=== PATIENT | male | born 1975 | race African-American/Black ===

== ENCOUNTER 2017-06-04 20:03 | Emergency (ER) | payer MEDICAID ==
[~2017-06-04] VITALS: Ht 185.4 cm; Wt 76.0 kg
[~2017-06-04 20:03] MED LIST: DILANTIN; PHENOBARBITAL; RISPERDAL; SEROQUEL
[2017-06-05 03:03] LABS: BASOPHILS % 0.7 % (0.0-2.0); EOSINOPHILS % 0.8 % (0.0-5.0); HEMATOCRIT. 37.6 % (42.0-52.0); HEMOGLOBIN. 12.6 g/dL (14.0-18.0); LYMPHOCYTES % 10.8 % (20.0-50.0); MEAN CORPUSCULAR HEMOGLOBIN 28.9 pg (28.0-32.0); MEAN CORPUSCULAR VOLUME 86.6 fL (80.0-94.0); MONOCYTES % 6.2 % (2.0-8.0); NEUTROPHILS % 81.5 % (40.0-76.0); PLATELET 95 x1000/uL (130-400); RED BLOOD CELL COUNT 4.34 mill/uL (4.7-6.1)
[2017-06-05 03:08] LABS: CHLORIDE 107 mEq/L (98-107)
[2017-06-05 03:17] LABS: CARBON DIOXIDE 22 mEq/L (21-32); ETHANOL BLOOD 240 mg/dL
[2017-06-05 03:32] LABS: CLARITY URINE CLEAR (CLEAR); COLOR URINE YELLOW (YELLOW); KETONES URINE NEGATIVE (NEGATIVE); LEUKOCYTE ESTERASE URINE NEGATIVE (NEGATIVE); NITRITE URINE NEGATIVE (NEGATIVE); OCCULT BLOOD URINE NEGATIVE (NEGATIVE); PROTEIN URINE NEGATIVE (NEGATIVE); SPECIFIC GRAVITY URINE 1.019 (1.005-1.030); UROBILINOGEN URINE 0.2 E.U./dL (0.2-1.0)
[2017-06-05 04:06] LABS: *AMPHETAMINES SCREEN URINE NEGATIVE (NEGATIVE); *BARBITURATES SCREEN URINE NEGATIVE (NEGATIVE); *BENZODIAZEPINES SCREEN URINE NEGATIVE (NEGATIVE); *COCAINE SCREEN URINE NEGATIVE (NEGATIVE); CANNABINOID URINE SCREEN NEGATIVE (NEGATIVE); METHADONE URINE SCREEN NEGATIVE (NEGATIVE); OPIATES URINE SCREEN NEGATIVE (NEGATIVE); PHENCYCLIDINE URINE SCREEN NEGATIVE (NEGATIVE)
[2017-06-05 12:00] VITALS: BP 133/94
[2017-06-05] MEDS: POTASSIUM CHLORIDE 20MEQ/PACKET PO ONE (12:12)
== END 2017-06-05 13:30 | disposition home or self-care (01) ==
LOC: ER 21:09
DX: F31.9 Bipolar disorder, unspecified (principal); F17.200 Nicotine dependence, unspecified, uncomplicated; Z59.0 Homelessness; Z91.14 Patient's other noncompliance with medication regimen
CPT/HCPCS: 36415; 80053; 80305; 81003; 82962; 85025; 99284; G0482; J7030; Z7610

== ENCOUNTER 2017-06-12 14:20 | Emergency (ER) | payer MEDICAID ==
[~2017-06-12] VITALS: Ht 177.8 cm; Wt 75.0 kg
[2017-06-12 14:23] VITALS: BP 117/74
== END 2017-06-12 18:37 | disposition left against medical advice (07) ==
LOC: ER 14:20
DX: R11.2 Nausea with vomiting, unspecified (principal); Z53.21 Procedure and treatment not carried out due to patient leaving prior to being seen by health care provider

== ENCOUNTER 2017-06-21 22:10 | Emergency (ER) | payer MEDICAID ==
[~2017-06-21] VITALS: Ht 172.7 cm; Wt 70.0 kg
[2017-06-21] MEDS ORDERED: ONDANSETRON HCL 4MG/2ML VIAL IV STA (22:35)
[2017-06-21] MEDS ORDERED: SODIUM CHLORIDE 0.9% 1,000 ML IV ONE (22:35)
[2017-06-22 01:15] LABS: BASOPHILS % 1.2 % (0.0-2.0); EOSINOPHILS % 3.4 % (0.0-5.0); HEMATOCRIT. 39.2 % (42.0-52.0); HEMOGLOBIN. 12.8 g/dL (14.0-18.0); LYMPHOCYTES % 31.9 % (20.0-50.0); MEAN CORPUSCULAR HEMOGLOBIN 28.5 pg (28.0-32.0); MEAN CORPUSCULAR VOLUME 87.7 fL (80.0-94.0); MEAN PLATELET VOLUME 8.4 fl (7.4-10.4); MONOCYTES % 6.9 % (2.0-8.0); NEUTROPHILS % 56.6 % (40.0-76.0); PLATELET 180 x1000/uL (130-400); RED BLOOD CELL COUNT 4.47 mill/uL (4.7-6.1); RED CELL DISTRIBUTION WIDTH 16.2 % (11.6-14.6)
[2017-06-22 01:19] LABS: CHLORIDE 108 mEq/L (98-107)
[2017-06-22 01:21] LABS: PROTHROMBIN TIME 10.1 sec (9.4-11.6)
[2017-06-22 01:28] LABS: CARBON DIOXIDE 25 mEq/L (21-32)
[2017-06-22] MEDS ORDERED: PHENYTOIN SODIUM 1,000 MG in SODIUM CHLORIDE 0.9% 100 ML IV ONE (01:45)
[2017-06-22 02:27] LABS: ETHANOL BLOOD 400 mg/dL
[2017-06-22 03:05] VITALS: BP 120/65
[2017-06-22] MEDS ORDERED: PHENYTOIN SODIUM 1,000 MG in SODIUM CHLORIDE 0.9% 250 ML IV SCH (04:00)
[2017-06-22 05:18] LABS: *AMPHETAMINES SCREEN URINE NEGATIVE (NEGATIVE); *BARBITURATES SCREEN URINE NEGATIVE (NEGATIVE); *BENZODIAZEPINES SCREEN URINE NEGATIVE (NEGATIVE); *COCAINE SCREEN URINE NEGATIVE (NEGATIVE); CANNABINOID URINE SCREEN NEGATIVE (NEGATIVE); METHADONE URINE SCREEN NEGATIVE (NEGATIVE); OPIATES URINE SCREEN NEGATIVE (NEGATIVE); PHENCYCLIDINE URINE SCREEN NEGATIVE (NEGATIVE)
== END 2017-06-22 07:08 | disposition home or self-care (01) ==
LOC: ER 22:10
DX: T51.0X1A Toxic effect of ethanol, accidental (unintentional), initial encounter (principal); Y92.89 Other specified places as the place of occurrence of the external cause
CPT/HCPCS: 36415; 80053; 80185; 80305; 85025; 85610; 96365; 99285; G0482; J1165; J7030; Z7610; J7050

== ENCOUNTER 2017-06-22 08:13 | Emergency (ER) | payer MEDICAID ==
[~2017-06-22] VITALS: Ht 185.4 cm; Wt 75.0 kg
[2017-06-22 08:15] VITALS: BP 133/91
== END 2017-06-22 16:19 | disposition left against medical advice (07) ==
LOC: ER 08:28
DX: F10.129 Alcohol abuse with intoxication, unspecified (principal); Z53.21 Procedure and treatment not carried out due to patient leaving prior to being seen by health care provider

== ENCOUNTER 2017-06-29 13:11 | Emergency (ER) | payer MEDICAID ==
[~2017-06-29] VITALS: Ht 180.3 cm; Wt 90.0 kg
[2017-06-29] MEDS ORDERED: SODIUM CHLORIDE 0.9% 1,000 ML IV ONE (16:04)
[2017-06-29 16:37] LABS: BASOPHILS % 0.8 % (0.0-2.0); EOSINOPHILS % 2.7 % (0.0-5.0); HEMOGLOBIN. 12.7 g/dL (14.0-18.0); MEAN CORPUSCULAR HEMOGLOBIN 28.5 pg (28.0-32.0); MEAN CORPUSCULAR VOLUME 87.5 fL (80.0-94.0); MEAN PLATELET VOLUME 8.5 fl (7.4-10.4); MONOCYTES % 7.8 % (2.0-8.0); NEUTROPHILS % 63.7 % (40.0-76.0); PLATELET 121 x1000/uL (130-400); RED BLOOD CELL COUNT 4.45 mill/uL (4.7-6.1); RED CELL DISTRIBUTION WIDTH 15.9 % (11.6-14.6)
[2017-06-29 16:55] LABS: CLARITY URINE CLEAR (CLEAR); COLOR URINE YELLOW (YELLOW); KETONES URINE TRACE (NEGATIVE); LEUKOCYTE ESTERASE URINE NEGATIVE (NEGATIVE); NITRITE URINE NEGATIVE (NEGATIVE); OCCULT BLOOD URINE TRACE (NEGATIVE); PROTEIN URINE 1+ (NEGATIVE); SPECIFIC GRAVITY URINE 1.023 (1.005-1.030); UROBILINOGEN URINE 0.2 E.U./dL (0.2-1.0)
[2017-06-29 16:59] LABS: CARBON DIOXIDE 24 mEq/L (21-32); CHLORIDE 105 mEq/L (98-107)
[2017-06-29 17:15] LABS: *AMPHETAMINES SCREEN URINE NEGATIVE (NEGATIVE); *BARBITURATES SCREEN URINE NEGATIVE (NEGATIVE); *BENZODIAZEPINES SCREEN URINE NEGATIVE (NEGATIVE); *COCAINE SCREEN URINE NEGATIVE (NEGATIVE); CANNABINOID URINE SCREEN NEGATIVE (NEGATIVE); METHADONE URINE SCREEN NEGATIVE (NEGATIVE); OPIATES URINE SCREEN NEGATIVE (NEGATIVE); PHENCYCLIDINE URINE SCREEN NEGATIVE (NEGATIVE)
[2017-06-29 17:17] LABS: ETHANOL BLOOD 313 mg/dL
[2017-06-29 20:26] VITALS: BP 131/81
== END 2017-06-29 20:36 | disposition home or self-care (01) ==
LOC: ER 13:23
DX: F10.229 Alcohol dependence with intoxication, unspecified (principal); Y90.8 Blood alcohol level of 240 mg/100 ml or more
CPT/HCPCS: 36415; 80053; 80305; 81001; 83690; 85025; 96360; 96361; 99285; G0482; J7030; Z7610

== ENCOUNTER 2017-06-30 01:20 | Emergency (ER) | payer MEDICAID ==
[~2017-06-30] VITALS: Ht 182.9 cm; Wt 82.0 kg
[2017-06-30 07:45] VITALS: BP 129/74
== END 2017-06-30 08:07 | disposition home or self-care (01) ==
LOC: ER 01:20
DX: F10.229 Alcohol dependence with intoxication, unspecified (principal); F17.200 Nicotine dependence, unspecified, uncomplicated; Y90.9 Presence of alcohol in blood, level not specified
CPT/HCPCS: 99283; Z7610

== ENCOUNTER 2017-07-04 21:39 | Emergency (ER) | payer MEDICAID ==
[~2017-07-04] VITALS: Ht 175.3 cm; Wt 84.0 kg
[2017-07-04 21:40] VITALS: BP 128/80
== END 2017-07-05 08:27 | disposition left against medical advice (07) ==
LOC: ER 22:13
DX: Z53.21 Procedure and treatment not carried out due to patient leaving prior to being seen by health care provider (principal)

== ENCOUNTER 2017-07-05 21:33 | Emergency (ER) | payer MEDICAID ==
[~2017-07-05] VITALS: Ht 185.4 cm; Wt 79.0 kg
[2017-07-06] MEDS ORDERED: PERMETHRIN 5% CREAM 60GM TOP ONE (04:15)
[2017-07-06 04:43] LABS: CLARITY URINE CLEAR (CLEAR); COLOR URINE YELLOW (YELLOW); KETONES URINE NEGATIVE (NEGATIVE); LEUKOCYTE ESTERASE URINE NEGATIVE (NEGATIVE); NITRITE URINE NEGATIVE (NEGATIVE); OCCULT BLOOD URINE TRACE (NEGATIVE); PROTEIN URINE 1+ (NEGATIVE); SPECIFIC GRAVITY URINE 1.017 (1.005-1.030); UROBILINOGEN URINE 0.2 E.U./dL (0.2-1.0)
[2017-07-06 05:00] VITALS: BP 127/69
[2017-07-06 05:01] LABS: BASOPHILS % 0.9 % (0.0-2.0); EOSINOPHILS % 6.8 % (0.0-5.0); HEMATOCRIT. 38.2 % (42.0-52.0); HEMOGLOBIN. 12.4 g/dL (14.0-18.0); LYMPHOCYTES % 25.9 % (20.0-50.0); MEAN CORPUSCULAR HEMOGLOBIN 28.7 pg (28.0-32.0); MEAN CORPUSCULAR VOLUME 88.1 fL (80.0-94.0); MEAN PLATELET VOLUME 8.5 fl (7.4-10.4); MONOCYTES % 9.1 % (2.0-8.0); NEUTROPHILS % 57.3 % (40.0-76.0); PLATELET 119 x1000/uL (130-400); RED BLOOD CELL COUNT 4.34 mill/uL (4.7-6.1); RED CELL DISTRIBUTION WIDTH 15.9 % (11.6-14.6)
[2017-07-06 05:03] LABS: CHLORIDE 106 mEq/L (98-107)
[2017-07-06 05:04] LABS: AMMONIA 30 uMol/L (<32)
[2017-07-06 05:12] LABS: *AMPHETAMINES SCREEN URINE NEGATIVE (NEGATIVE); *BARBITURATES SCREEN URINE NEGATIVE (NEGATIVE); *BENZODIAZEPINES SCREEN URINE NEGATIVE (NEGATIVE); *COCAINE SCREEN URINE NEGATIVE (NEGATIVE); CANNABINOID URINE SCREEN NEGATIVE (NEGATIVE); METHADONE URINE SCREEN NEGATIVE (NEGATIVE); OPIATES URINE SCREEN NEGATIVE (NEGATIVE); PHENCYCLIDINE URINE SCREEN NEGATIVE (NEGATIVE)
[2017-07-06 05:19] LABS: CARBON DIOXIDE 25 mEq/L (21-32)
[2017-07-06] MEDS ORDERED: HYDROCORTISONE 2.5% CREAM 20GM TOP SCH (06:00)
[2017-07-06 06:05] LABS: ETHANOL BLOOD 304 mg/dL
== END 2017-07-06 07:41 | disposition home or self-care (01) ==
LOC: ER 23:41
DX: G31.2 Degeneration of nervous system due to alcohol (principal); B86 Scabies; F20.9 Schizophrenia, unspecified; F10.20 Alcohol dependence, uncomplicated; F31.9 Bipolar disorder, unspecified; F17.200 Nicotine dependence, unspecified, uncomplicated; Y90.8 Blood alcohol level of 240 mg/100 ml or more
CPT/HCPCS: 36415; 80053; 80185; 80305; 80307; 80329; 81001; 82140; 82962; 85025; 99284; G0482

== ENCOUNTER 2017-07-07 20:43 | Emergency (ER) | payer MEDICAID ==
[~2017-07-07] VITALS: Ht 188 cm; Wt 72.1 kg
[2017-07-07 21:08] VITALS: BP 148/9
== END 2017-07-08 01:48 | disposition left against medical advice (07) ==
LOC: ER 20:43
DX: Z53.21 Procedure and treatment not carried out due to patient leaving prior to being seen by health care provider (principal)

== ENCOUNTER 2017-07-20 02:11 | Emergency (ER) | payer MEDICAID ==
[~2017-07-20] VITALS: Ht 177.8 cm; Wt 80.0 kg
[2017-07-20] MEDS ORDERED: ONDANSETRON HCL 4MG/2ML VIAL IV STA (04:46)
[2017-07-20] MEDS ORDERED: SODIUM CHLORIDE 0.9% 1,000 ML IV ONE (04:46)
[2017-07-20] MEDS ORDERED: MAGNESIUM/ALUMINUM HYDROXIDE/SIMETHICONE 30ML UDC PO STA (04:46)
[2017-07-20 05:17] LABS: BASOPHILS % 1.2 % (0.0-2.0); EOSINOPHILS % 6.9 % (0.0-5.0); HEMATOCRIT. 35.7 % (42.0-52.0); HEMOGLOBIN. 11.6 g/dL (14.0-18.0); LYMPHOCYTES % 22.8 % (20.0-50.0); MEAN CORPUSCULAR HEMOGLOBIN 28.7 pg (28.0-32.0); MEAN CORPUSCULAR VOLUME 88.1 fL (80.0-94.0); MEAN PLATELET VOLUME 8.5 fl (7.4-10.4); MONOCYTES % 8.7 % (2.0-8.0); NEUTROPHILS % 60.4 % (40.0-76.0); PLATELET 135 x1000/uL (130-400); PROTHROMBIN TIME 10.6 sec (9.4-11.6); RED BLOOD CELL COUNT 4.05 mill/uL (4.7-6.1); RED CELL DISTRIBUTION WIDTH 16.2 % (11.6-14.6)
[2017-07-20 05:24] LABS: CARBON DIOXIDE 26 mEq/L (21-32); CHLORIDE 106 mEq/L (98-107)
[2017-07-20 05:46] LABS: CLARITY URINE CLEAR (CLEAR); COLOR URINE YELLOW (YELLOW); KETONES URINE NEGATIVE (NEGATIVE); LEUKOCYTE ESTERASE URINE NEGATIVE (NEGATIVE); NITRITE URINE NEGATIVE (NEGATIVE); OCCULT BLOOD URINE 1+ (NEGATIVE); PROTEIN URINE 1+ (NEGATIVE); SPECIFIC GRAVITY URINE 1.015 (1.005-1.030); UROBILINOGEN URINE 0.2 E.U./dL (0.2-1.0)
[2017-07-20 06:28] LABS: ETHANOL BLOOD 398 mg/dL
[2017-07-20 07:09] LABS: *AMPHETAMINES SCREEN URINE NEGATIVE (NEGATIVE); *BARBITURATES SCREEN URINE NEGATIVE (NEGATIVE); *BENZODIAZEPINES SCREEN URINE NEGATIVE (NEGATIVE); *COCAINE SCREEN URINE NEGATIVE (NEGATIVE); CANNABINOID URINE SCREEN NEGATIVE (NEGATIVE); METHADONE URINE SCREEN NEGATIVE (NEGATIVE); OPIATES URINE SCREEN NEGATIVE (NEGATIVE); PHENCYCLIDINE URINE SCREEN NEGATIVE (NEGATIVE)
[2017-07-20] MEDS ORDERED: THIAMINE HCL 100 MG/1 ML 2ML VIAL IV ONE (08:15)
[2017-07-20 11:30] VITALS: BP 130/86
== END 2017-07-20 12:00 | disposition home or self-care (01) ==
LOC: ER 02:11
DX: F10.129 Alcohol abuse with intoxication, unspecified (principal); E16.2 Hypoglycemia, unspecified; I10 Essential (primary) hypertension
CPT/HCPCS: 36415; 80053; 80305; 81001; 82962; 83690; 85025; 85610; 93005; 96361; 96374; 96375; 99285; G0482; J2405; J3411; J7030; Z7610

== ENCOUNTER 2017-07-21 11:45 | Emergency (ER) | payer MEDICAID ==
[~2017-07-21] VITALS: Ht 182.9 cm; Wt 73.0 kg
[2017-07-21 11:47] VITALS: BP 118/68
== END 2017-07-21 17:27 | disposition left against medical advice (07) ==
LOC: ER 12:00
DX: Z53.21 Procedure and treatment not carried out due to patient leaving prior to being seen by health care provider (principal)

== ENCOUNTER 2017-07-24 01:45 | Emergency (ER) | payer MEDICAID ==
[~2017-07-24] VITALS: Ht 185.4 cm; Wt 82.0 kg
[2017-07-24] MEDS ORDERED: FAMOTIDINE 20MG/2ML VIAL IV STA (06:11)
[2017-07-24] MEDS ORDERED: ONDANSETRON HCL 4MG/2ML VIAL IV STA (06:11)
[2017-07-24] MEDS ORDERED: SODIUM CHLORIDE 0.9% 1,000 ML IV ONE (06:11)
[2017-07-24 06:39] LABS: CHLORIDE 104 mEq/L (98-107)
[2017-07-24 06:40] LABS: HEMATOCRIT. 35.1 % (42.0-52.0); HEMOGLOBIN. 11.5 g/dL (14.0-18.0); MEAN CORPUSCULAR HEMOGLOBIN 28.7 pg (28.0-32.0); MEAN CORPUSCULAR VOLUME 87.3 fL (80.0-94.0); MEAN PLATELET VOLUME 7.8 fl (7.4-10.4); PLATELET 128 x1000/uL (130-400); RED BLOOD CELL COUNT 4.02 mill/uL (4.7-6.1)
[2017-07-24 07:09] LABS: ETHANOL BLOOD 330 mg/dL
[2017-07-24 07:24] LABS: PLATELET ESTIMATE NORMAL
[2017-07-24] MEDS ORDERED: PHENYTOIN SODIUM 1,000 MG in SODIUM CHLORIDE 0.9% 100 ML IV ONE (07:30)
[2017-07-24 08:25] LABS: CLARITY URINE CLEAR (CLEAR); COLOR URINE YELLOW (YELLOW); KETONES URINE NEGATIVE (NEGATIVE); LEUKOCYTE ESTERASE URINE NEGATIVE (NEGATIVE); NITRITE URINE NEGATIVE (NEGATIVE); OCCULT BLOOD URINE 2+ (NEGATIVE); PROTEIN URINE 3+ (NEGATIVE); SPECIFIC GRAVITY URINE 1.023 (1.005-1.030); UROBILINOGEN URINE 0.2 E.U./dL (0.2-1.0)
[2017-07-24 09:39] LABS: *AMPHETAMINES SCREEN URINE NEGATIVE (NEGATIVE); *BARBITURATES SCREEN URINE NEGATIVE (NEGATIVE); *BENZODIAZEPINES SCREEN URINE NEGATIVE (NEGATIVE); *COCAINE SCREEN URINE NEGATIVE (NEGATIVE); CANNABINOID URINE SCREEN NEGATIVE (NEGATIVE); METHADONE URINE SCREEN NEGATIVE (NEGATIVE); OPIATES URINE SCREEN NEGATIVE (NEGATIVE); PHENCYCLIDINE URINE SCREEN NEGATIVE (NEGATIVE)
[2017-07-24 10:29] VITALS: BP 121/75
== END 2017-07-24 10:30 | disposition home or self-care (01) ==
LOC: ER 01:45
DX: T51.0X1A Toxic effect of ethanol, accidental (unintentional), initial encounter (principal); F10.129 Alcohol abuse with intoxication, unspecified; F17.200 Nicotine dependence, unspecified, uncomplicated; G40.909 Epilepsy, unspecified, not intractable, without status epilepticus; I10 Essential (primary) hypertension; R26.89 Other abnormalities of gait and mobility; Y90.8 Blood alcohol level of 240 mg/100 ml or more; Z59.0 Homelessness
CPT/HCPCS: 36415; 80053; 80185; 80305; 81001; 83690; 85025; 96365; 96375; 99284; G0482; J1165; J2405; J3490; J7030; Z7610; J7050

== ENCOUNTER 2017-08-01 03:37 | Emergency (ER) | payer MEDICAID ==
[~2017-08-01] VITALS: Ht 175.3 cm; Wt 90.0 kg
[2017-08-01] MEDS ORDERED: ONDANSETRON 4MG ODT PO STA (08:57)
[2017-08-01] MEDS ORDERED: ONDANSETRON HCL 4MG/2ML VIAL IV ONE (09:15)
[2017-08-01] MEDS ORDERED: SODIUM CHLORIDE 0.9% 1,000 ML IV ONE (09:15)
[2017-08-01] MEDS ORDERED: LORAZEPAM 2MG/ML CPJ IV ONE (09:15)
[2017-08-01 09:16] LABS: BASOPHILS % 0.8 % (0.0-2.0); EOSINOPHILS % 4.5 % (0.0-5.0); HEMATOCRIT. 35.4 % (42.0-52.0); HEMOGLOBIN. 11.7 g/dL (14.0-18.0); LYMPHOCYTES % 10.6 % (20.0-50.0); MEAN CORPUSCULAR HEMOGLOBIN 28.2 pg (28.0-32.0); MEAN CORPUSCULAR VOLUME 85.2 fL (80.0-94.0); MEAN PLATELET VOLUME 7.7 fl (7.4-10.4); MONOCYTES % 13.5 % (2.0-8.0); NEUTROPHILS % 70.6 % (40.0-76.0); PLATELET 135 x1000/uL (130-400); RED BLOOD CELL COUNT 4.15 mill/uL (4.7-6.1); RED CELL DISTRIBUTION WIDTH 16.9 % (11.6-14.6)
[2017-08-01 09:24] LABS: CHLORIDE 100 mEq/L (98-107); PROTHROMBIN TIME 10.1 sec (9.4-11.6)
[2017-08-01 14:30] VITALS: BP 124/86
== END 2017-08-01 15:11 | disposition home or self-care (01) ==
LOC: ER 03:37
DX: F10.129 Alcohol abuse with intoxication, unspecified (principal); R10.84 Generalized abdominal pain; R11.2 Nausea with vomiting, unspecified; I10 Essential (primary) hypertension; F17.200 Nicotine dependence, unspecified, uncomplicated; Y90.9 Presence of alcohol in blood, level not specified
CPT/HCPCS: 36415; 80053; 83690; 85025; 85610; 96361; 96374; 96375; 99285; J2060; J2405; J7030; Z7610

== ENCOUNTER 2017-08-01 17:42 | Emergency (ER) | payer MEDICAID ==
[~2017-08-01] VITALS: Ht 180.3 cm; Wt 70.0 kg
[2017-08-01] MEDS ORDERED: FOLIC ACID 1 MG, THIAMINE HCL 100 MG, MVI, ADULT NO.1 10 ML in DEXTROSE 5% WATER 1,000 ML IV ONE ×4 (19:15)
[2017-08-01 19:55] LABS: HEMATOCRIT. 35.2 % (42.0-52.0); HEMOGLOBIN. 11.8 g/dL (14.0-18.0); MEAN CORPUSCULAR HEMOGLOBIN 28.5 pg (28.0-32.0); MEAN PLATELET VOLUME 8.2 fl (7.4-10.4); PLATELET 128 x1000/uL (130-400); RED BLOOD CELL COUNT 4.14 mill/uL (4.7-6.1)
[2017-08-01 20:05] LABS: CHLORIDE 100 mEq/L (98-107); ETHANOL BLOOD < 10 mg/dL
[2017-08-01 20:13] LABS: PLATELET ESTIMATE DECREASED
[2017-08-01] MEDS ORDERED: CHLORDIAZEPOXIDE 25MG CAPSULE PO ONE (21:00)
[2017-08-02 04:32] VITALS: BP 125/68
== END 2017-08-02 06:25 | disposition home or self-care (01) ==
LOC: ER 17:54
DX: F10.229 Alcohol dependence with intoxication, unspecified (principal); F17.200 Nicotine dependence, unspecified, uncomplicated; R56.9 Unspecified convulsions; Y90.0 Blood alcohol level of less than 20 mg/100 ml
CPT/HCPCS: 36415; 80053; 85025; 96365; 99284; G0482; J3411; J3490; J7070; Z7610

== ENCOUNTER 2017-10-03 02:53 | Emergency (ER) | payer MEDICAID ==
[~2017-10-03] VITALS: Ht 188 cm; Wt 78.0 kg
[2017-10-03 04:35] LABS: BASOPHILS % 0.7 % (0.0-2.0); CHLORIDE 107 mEq/L (98-107); EOSINOPHILS % 5.9 % (0.0-5.0); HEMATOCRIT. 29.8 % (42.0-52.0); HEMOGLOBIN. 9.7 g/dL (14.0-18.0); LYMPHOCYTES % 15.3 % (20.0-50.0); MEAN CORPUSCULAR HEMOGLOBIN 27.5 pg (28.0-32.0); MEAN CORPUSCULAR VOLUME 84.7 fL (80.0-94.0); MEAN PLATELET VOLUME 7.8 fl (7.4-10.4); MONOCYTES % 5.2 % (2.0-8.0); NEUTROPHILS % 72.9 % (40.0-76.0); PLATELET 206 x1000/uL (130-400); RED BLOOD CELL COUNT 3.51 mill/uL (4.7-6.1); RED CELL DISTRIBUTION WIDTH 21.4 % (11.6-14.6)
[2017-10-03 04:47] LABS: ETHANOL BLOOD 376 mg/dL
[2017-10-03 08:04] LABS: *AMPHETAMINES SCREEN URINE NEGATIVE (NEGATIVE); *BARBITURATES SCREEN URINE NEGATIVE (NEGATIVE)
[2017-10-03 08:05] LABS: *BENZODIAZEPINES SCREEN URINE NEGATIVE (NEGATIVE); *COCAINE SCREEN URINE NEGATIVE (NEGATIVE); CANNABINOID URINE SCREEN NEGATIVE (NEGATIVE); METHADONE URINE SCREEN NEGATIVE (NEGATIVE); OPIATES URINE SCREEN NEGATIVE (NEGATIVE); PHENCYCLIDINE URINE SCREEN NEGATIVE (NEGATIVE)
[2017-10-03] MEDS ORDERED: KETOROLAC 30MG/ML VIAL IV STA (08:59)
[2017-10-03] MEDS ORDERED: SODIUM CHLORIDE 0.9% 1,000 ML IV ONE ×2 (08:59)
[2017-10-03] MEDS ORDERED: ONDANSETRON HCL 4MG/2ML VIAL IV ONE (09:00)
[2017-10-03] MEDS ORDERED: FAMOTIDINE 20MG/2ML VIAL IV ONE (09:00)
[2017-10-03 12:33] VITALS: BP 135/85
== END 2017-10-03 12:37 | disposition home or self-care (01) ==
LOC: ER 03:18
DX: F10.129 Alcohol abuse with intoxication, unspecified (principal); M24.411 Recurrent dislocation, right shoulder; F17.200 Nicotine dependence, unspecified, uncomplicated; F12.10 Cannabis abuse, uncomplicated; F31.9 Bipolar disorder, unspecified; R56.9 Unspecified convulsions; Y90.8 Blood alcohol level of 240 mg/100 ml or more
CPT/HCPCS: 36415; 73030; 80048; 80305; 80307; 80329; 85025; 96361; 96374; 96375; 99285; G0482; J1885; J2405; J3490; J7030

== ENCOUNTER 2017-10-10 14:37 | Emergency (ER) | payer MEDICAID ==
[~2017-10-10] VITALS: Ht 177.8 cm; Wt 75.0 kg
[2017-10-10 16:28] LABS: BASOPHILS % 0.3 % (0.0-2.0); EOSINOPHILS % 4.7 % (0.0-5.0); HEMATOCRIT. 26.4 % (42.0-52.0); HEMOGLOBIN. 8.6 g/dL (14.0-18.0); LYMPHOCYTES % 20.4 % (20.0-50.0); MEAN CORPUSCULAR HEMOGLOBIN 27.9 pg (28.0-32.0); MEAN CORPUSCULAR VOLUME 85.4 fL (80.0-94.0); MEAN PLATELET VOLUME 8.2 fl (7.4-10.4); MONOCYTES % 13.5 % (2.0-8.0); NEUTROPHILS % 61.1 % (40.0-76.0); PLATELET 172 x1000/uL (130-400)
[2017-10-10 16:33] LABS: CHLORIDE 105 mEq/L (98-107)
[2017-10-10 16:39] LABS: ETHANOL BLOOD 130 mg/dL
[2017-10-10 18:35] LABS: CLARITY URINE CLEAR (CLEAR); COLOR URINE YELLOW (YELLOW); KETONES URINE NEGATIVE (NEGATIVE); LEUKOCYTE ESTERASE URINE NEGATIVE (NEGATIVE); NITRITE URINE NEGATIVE (NEGATIVE); OCCULT BLOOD URINE NEGATIVE (NEGATIVE); PROTEIN URINE NEGATIVE (NEGATIVE); SPECIFIC GRAVITY URINE 1.014 (1.005-1.030); UROBILINOGEN URINE 0.2 E.U./dL (0.2-1.0)
[2017-10-10 19:02] LABS: *AMPHETAMINES SCREEN URINE NEGATIVE (NEGATIVE)
[2017-10-10 19:03] LABS: *BARBITURATES SCREEN URINE NEGATIVE (NEGATIVE); *BENZODIAZEPINES SCREEN URINE NEGATIVE (NEGATIVE); *COCAINE SCREEN URINE NEGATIVE (NEGATIVE); METHADONE URINE SCREEN NEGATIVE (NEGATIVE); OPIATES URINE SCREEN NEGATIVE (NEGATIVE); PHENCYCLIDINE URINE SCREEN NEGATIVE (NEGATIVE)
[2017-10-10 19:04] LABS: CANNABINOID URINE SCREEN NEGATIVE (NEGATIVE)
[2017-10-11] MEDS ORDERED: ACETAMINOPHEN 325MG TABLET PO ONE (04:00)
[2017-10-11 13:43] VITALS: BP 125/70
== END 2017-10-11 13:45 | disposition home or self-care (01) ==
LOC: ER 15:28
DX: R31.9 Hematuria, unspecified (principal); R56.9 Unspecified convulsions; F12.10 Cannabis abuse, uncomplicated
CPT/HCPCS: 36415; 80053; 80305; 80307; 80329; 81003; 85025; 99284; G0482

== ENCOUNTER 2019-09-18 23:59 | Emergency (ER) | payer MEDICAID ==
[~2019-09-18] VITALS: Ht 185.4 cm; Wt 80.0 kg
[~2019-09-18 23:59] MED LIST changes: +OLAN10TA3 MT; +PHEN100C4 MT; +QUET25TA PO; +SULF1TAB47 MT
[2019-09-19 05:35] LABS: BASOPHILS % 0.4 % (0.0-2.0); HEMATOCRIT. 39.4 % (42.0-52.0); HEMOGLOBIN. 13.3 g/dL (14.0-18.0); LYMPHOCYTES % 28.6 % (20.0-50.0); MEAN CORPUSCULAR HEMOGLOBIN 30.7 pg (28.0-32.0); MEAN CORPUSCULAR VOLUME 90.9 fL (80.0-94.0); MEAN PLATELET VOLUME 8.4 fl (7.4-10.4); MONOCYTES % 5.9 % (2.0-8.0); NEUTROPHILS % 60.1 % (40.0-76.0); PLATELET 216 x1000/uL (130-400); RED BLOOD CELL COUNT 4.34 mill/uL (4.7-6.1); RED CELL DISTRIBUTION WIDTH 15.7 % (11.6-14.6)
[2019-09-19 05:37] LABS: CHLORIDE 108 mEq/L (98-107)
[2019-09-19 06:03] LABS: ETHANOL BLOOD 308 mg/dL
[2019-09-19 08:04] LABS: CLARITY URINE CLEAR (CLEAR); COLOR URINE YELLOW (YELLOW); KETONES URINE NEGATIVE (NEGATIVE); LEUKOCYTE ESTERASE URINE NEGATIVE (NEGATIVE); NITRITE URINE NEGATIVE (NEGATIVE); OCCULT BLOOD URINE TRACE (NEGATIVE); PH URINE 5.5 (4.5-8.0); PROTEIN URINE 1+ (NEGATIVE); SPECIFIC GRAVITY URINE 1.011 (1.005-1.030); UROBILINOGEN URINE 0.2 E.U./dL (0.2-1.0)
[2019-09-19 08:39] LABS: *BARBITURATES SCREEN URINE NEGATIVE (NEGATIVE); *BENZODIAZEPINES SCREEN URINE NEGATIVE (NEGATIVE); *COCAINE SCREEN URINE NEGATIVE (NEGATIVE); CANNABINOID URINE SCREEN NEGATIVE (NEGATIVE); METHADONE URINE SCREEN NEGATIVE (NEGATIVE); OPIATES URINE SCREEN NEGATIVE (NEGATIVE); PHENCYCLIDINE URINE SCREEN NEGATIVE (NEGATIVE)
[2019-09-19 08:40] LABS: *AMPHETAMINES SCREEN URINE NEGATIVE (NEGATIVE)
[2019-09-19 12:09] VITALS: BP 107/84
== END 2019-09-19 13:28 | disposition home or self-care (01) ==
LOC: ER 23:59
DX: L97.928 Non-pressure chronic ulcer of unspecified part of left lower leg with other specified severity (principal); L97.918 Non-pressure chronic ulcer of unspecified part of right lower leg with other specified severity; F20.9 Schizophrenia, unspecified; F31.9 Bipolar disorder, unspecified; F10.10 Alcohol abuse, uncomplicated; Y90.8 Blood alcohol level of 240 mg/100 ml or more; Z59.0 Homelessness; Z75.1 Person awaiting admission to adequate facility elsewhere
CPT/HCPCS: 36415; 80053; 80305; 80307; 80320; 80329; 81003; 85025; 99285; G0480

== ENCOUNTER 2019-10-08 00:21 | Emergency (ER) | payer MEDICAID ==
[~2019-10-08] VITALS: Ht 188 cm; Wt 82.0 kg
[2019-10-08] MEDS ORDERED: ACETAMINOPHEN 325MG TABLET PO ONE (02:15)
[2019-10-08] MEDS ORDERED: AMOXICILLIN/POTASSIUM CLAVULANATE 875/125MG TAB PO SCH (03:15)
[2019-10-08 10:02] VITALS: BP 132/78
== END 2019-10-08 09:57 | disposition home or self-care (01) ==
LOC: ER 00:21
DX: L03.116 Cellulitis of left lower limb (principal); F20.9 Schizophrenia, unspecified; F31.9 Bipolar disorder, unspecified; Z59.0 Homelessness; Z87.828 Personal history of other (healed) physical injury and trauma
CPT/HCPCS: 99283

== ENCOUNTER 2019-10-22 18:41 | Emergency (ER) | payer MEDICAID ==
[~2019-10-22] VITALS: Ht 188 cm; Wt 74.6 kg
[2019-10-22 20:43] LABS: CLARITY URINE CLEAR (CLEAR); COLOR URINE YELLOW (YELLOW); KETONES URINE TRACE (NEGATIVE); LEUKOCYTE ESTERASE URINE NEGATIVE (NEGATIVE); NITRITE URINE NEGATIVE (NEGATIVE); OCCULT BLOOD URINE 2+ (NEGATIVE); PROTEIN URINE 2+ (NEGATIVE); SPECIFIC GRAVITY URINE 1.023 (1.005-1.030)
[2019-10-22 20:56] LABS: *AMPHETAMINES SCREEN URINE NEGATIVE (NEGATIVE); *BENZODIAZEPINES SCREEN URINE NEGATIVE (NEGATIVE); *COCAINE SCREEN URINE NEGATIVE (NEGATIVE); CANNABINOID URINE SCREEN NEGATIVE (NEGATIVE); METHADONE URINE SCREEN NEGATIVE (NEGATIVE); OPIATES URINE SCREEN NEGATIVE (NEGATIVE); PHENCYCLIDINE URINE SCREEN NEGATIVE (NEGATIVE)
[2019-10-22 20:57] LABS: *BARBITURATES SCREEN URINE NEGATIVE (NEGATIVE)
[2019-10-23] MEDS ORDERED: CEPHALEXIN 250MG CAPSULE PO ONE (07:45)
[2019-10-23] MEDS ORDERED: TETANUS, DIPHTHERIA, PERTUSSIS VAC/PF 0.5ML (>7YR OLD) IM ONE (07:45)
[2019-10-23] MEDS ORDERED: SULFAMETHOXAZOLE/TRIMETHOPRIM 800/160MG TABLET PO ONE (07:45)
[2019-10-23 09:15] VITALS: BP 142/72
== END 2019-10-23 09:15 | disposition home or self-care (01) ==
LOC: ER 18:41
DX: M79.662 Pain in left lower leg (principal); F10.229 Alcohol dependence with intoxication, unspecified; Y90.0 Blood alcohol level of less than 20 mg/100 ml; F31.9 Bipolar disorder, unspecified; F20.9 Schizophrenia, unspecified; Z79.899 Other long term (current) drug therapy
CPT/HCPCS: 80305; 81003; 90471; 90715; 99285

== ENCOUNTER 2019-11-06 02:49 | Emergency (ER) | payer MEDICAID ==
[~2019-11-06] VITALS: Ht 188 cm; Wt 74.3 kg
[2019-11-06 04:16] LABS: BASOPHILS % 0.8 % (0.0-2.0); EOSINOPHILS % 5.7 % (0.0-5.0); HEMATOCRIT. 37.5 % (42.0-52.0); HEMOGLOBIN. 12.8 g/dL (14.0-18.0); LYMPHOCYTES % 21.1 % (20.0-50.0); MEAN CORPUSCULAR HEMOGLOBIN 31.4 pg (28.0-32.0); MEAN CORPUSCULAR VOLUME 91.8 fL (80.0-94.0); MEAN PLATELET VOLUME 8.5 fl (7.4-10.4); MONOCYTES % 6.9 % (2.0-8.0); NEUTROPHILS % 65.5 % (40.0-76.0); PLATELET 132 x1000/uL (130-400); RED BLOOD CELL COUNT 4.09 mill/uL (4.7-6.1); RED CELL DISTRIBUTION WIDTH 15.7 % (11.6-14.6)
[2019-11-06 04:22] LABS: CHLORIDE 107 mEq/L (98-107)
[2019-11-06 04:38] LABS: ETHANOL BLOOD 414 mg/dL
[2019-11-06 07:39] LABS: CLARITY URINE CLEAR (CLEAR); COLOR URINE YELLOW (YELLOW); KETONES URINE NEGATIVE (NEGATIVE); LEUKOCYTE ESTERASE URINE NEGATIVE (NEGATIVE); NITRITE URINE NEGATIVE (NEGATIVE); OCCULT BLOOD URINE 1+ (NEGATIVE); PROTEIN URINE 2+ (NEGATIVE); SPECIFIC GRAVITY URINE 1.014 (1.005-1.030); UROBILINOGEN URINE 0.2 E.U./dL (0.2-1.0)
[2019-11-06 08:03] LABS: *AMPHETAMINES SCREEN URINE NEGATIVE (NEGATIVE); *BARBITURATES SCREEN URINE NEGATIVE (NEGATIVE); *BENZODIAZEPINES SCREEN URINE NEGATIVE (NEGATIVE); *COCAINE SCREEN URINE NEGATIVE (NEGATIVE); CANNABINOID URINE SCREEN NEGATIVE (NEGATIVE); METHADONE URINE SCREEN NEGATIVE (NEGATIVE); OPIATES URINE SCREEN NEGATIVE (NEGATIVE); PHENCYCLIDINE URINE SCREEN NEGATIVE (NEGATIVE)
[2019-11-06 09:00] VITALS: BP 124/65
== END 2019-11-06 09:25 | disposition home or self-care (01) ==
LOC: ER 03:15
DX: L03.115 Cellulitis of right lower limb (principal); R44.0 Auditory hallucinations; F10.129 Alcohol abuse with intoxication, unspecified; Z79.899 Other long term (current) drug therapy; Z98.890 Other specified postprocedural states; Z59.0 Homelessness; Y90.9 Presence of alcohol in blood, level not specified
CPT/HCPCS: 36415; 80053; 80305; 80320; 81003; 85025; 99283; G0480

== ENCOUNTER 2019-11-11 21:52 | Emergency (ER) | payer MEDICAID ==
[~2019-11-11] VITALS: Ht 180.3 cm; Wt 82.0 kg
[2019-11-11] MEDS ORDERED: LIDOCAINE HCL 1% 20ML VIAL (Pyxis) INJ INFIL ONE (23:30)
[2019-11-12 08:27] VITALS: BP 124/70
== END 2019-11-12 09:47 | disposition home or self-care (01) ==
LOC: ER 21:52
DX: S01.112A Laceration without foreign body of left eyelid and periocular area, initial encounter (principal); S05.12XA Contusion of eyeball and orbital tissues, left eye, initial encounter; F10.129 Alcohol abuse with intoxication, unspecified; G92 Toxic encephalopathy; F20.9 Schizophrenia, unspecified; G40.909 Epilepsy, unspecified, not intractable, without status epilepticus; Y90.9 Presence of alcohol in blood, level not specified; Z59.0 Homelessness; W17.89XA Other fall from one level to another, initial encounter; Y93.89 Activity, other specified; Y92.815 Train as the place of occurrence of the external cause
CPT/HCPCS: 12011; 99284

== ENCOUNTER 2019-11-13 02:55 | Emergency (ER) | payer MEDICAID ==
[~2019-11-13] VITALS: Ht 185.4 cm; Wt 75.0 kg
[2019-11-13 05:03] LABS: CHLORIDE 106 mEq/L (98-107)
[2019-11-13 05:05] LABS: BASOPHILS % 0.8 % (0.0-2.0); EOSINOPHILS % 6.5 % (0.0-5.0); HEMATOCRIT. 35.3 % (42.0-52.0); HEMOGLOBIN. 12.1 g/dL (14.0-18.0); MEAN CORPUSCULAR HEMOGLOBIN 31.5 pg (28.0-32.0); MEAN CORPUSCULAR VOLUME 91.8 fL (80.0-94.0); MEAN PLATELET VOLUME 8.6 fl (7.4-10.4); MONOCYTES % 7.3 % (2.0-8.0); NEUTROPHILS % 66.4 % (40.0-76.0); PLATELET 124 x1000/uL (130-400); RED BLOOD CELL COUNT 3.85 mill/uL (4.7-6.1); RED CELL DISTRIBUTION WIDTH 15.1 % (11.6-14.6)
[2019-11-13 05:08] LABS: ETHANOL BLOOD 213 mg/dL
[2019-11-13] MEDS ORDERED: PHENYTOIN SODIUM 1,000 MG in SODIUM CHLORIDE 0.9% 100 ML IV ONE (07:30)
[2019-11-13] MEDS ORDERED: SODIUM CHLORIDE 0.9% 1,000 ML IV ONE (08:17)
[2019-11-13] MEDS ORDERED: POTASSIUM CHLORIDE 20MEQ TABLET SR PO ONE (09:30)
[2019-11-13 09:50] LABS: CLARITY URINE CLEAR (CLEAR); COLOR URINE YELLOW (YELLOW); KETONES URINE NEGATIVE (NEGATIVE); LEUKOCYTE ESTERASE URINE NEGATIVE (NEGATIVE); NITRITE URINE NEGATIVE (NEGATIVE); OCCULT BLOOD URINE 1+ (NEGATIVE); PROTEIN URINE 1+ (NEGATIVE); SPECIFIC GRAVITY URINE 1.018 (1.005-1.030); UROBILINOGEN URINE 0.2 E.U./dL (0.2-1.0)
[2019-11-13 10:14] LABS: *AMPHETAMINES SCREEN URINE NEGATIVE (NEGATIVE)
[2019-11-13 10:15] LABS: *BARBITURATES SCREEN URINE NEGATIVE (NEGATIVE); *BENZODIAZEPINES SCREEN URINE NEGATIVE (NEGATIVE); *COCAINE SCREEN URINE NEGATIVE (NEGATIVE); CANNABINOID URINE SCREEN NEGATIVE (NEGATIVE); METHADONE URINE SCREEN NEGATIVE (NEGATIVE); OPIATES URINE SCREEN NEGATIVE (NEGATIVE); PHENCYCLIDINE URINE SCREEN NEGATIVE (NEGATIVE)
[2019-11-13 17:13] VITALS: BP 145/81
== END 2019-11-13 18:11 | disposition home or self-care (01) ==
LOC: ER 02:55
DX: R45.851 Suicidal ideations (principal); F12.10 Cannabis abuse, uncomplicated; F10.129 Alcohol abuse with intoxication, unspecified; G40.909 Epilepsy, unspecified, not intractable, without status epilepticus; E87.8 Other disorders of electrolyte and fluid balance, not elsewhere classified; Z79.899 Other long term (current) drug therapy; Z98.890 Other specified postprocedural states; Y90.7 Blood alcohol level of 200-239 mg/100 ml
CPT/HCPCS: 36415; 80053; 80185; 80305; 80307; 80320; 80329; 81003; 85025; 96365; 96366; 99285; J1165; J7030; J7050; G0480

== ENCOUNTER 2019-12-04 04:48 | Emergency (ER) | payer MEDICAID ==
[~2019-12-04] VITALS: Ht 177.8 cm; Wt 75.0 kg
[2019-12-04] MEDS ORDERED: BACITRACIN 15GM TUBE TOP ONE (05:30)
[2019-12-04 09:19] VITALS: BP 122/78
== END 2019-12-04 09:27 | disposition home or self-care (01) ==
LOC: ER 04:48
DX: M79.662 Pain in left lower leg (principal); F31.9 Bipolar disorder, unspecified; F20.9 Schizophrenia, unspecified; Z79.899 Other long term (current) drug therapy
CPT/HCPCS: 99283

== ENCOUNTER 2019-12-07 01:13 | Emergency (ER) | payer MEDICAID ==
[~2019-12-07] VITALS: Ht 182.9 cm; Wt 91.0 kg
[2019-12-07] MEDS ORDERED: BACITRACIN ZINC OINT UDPKT TOP ONE (04:15)
[2019-12-07 05:28] LABS: CLARITY URINE CLEAR (CLEAR); COLOR URINE YELLOW (YELLOW); KETONES URINE NEGATIVE (NEGATIVE); LEUKOCYTE ESTERASE URINE NEGATIVE (NEGATIVE); NITRITE URINE NEGATIVE (NEGATIVE); OCCULT BLOOD URINE TRACE (NEGATIVE); PROTEIN URINE 1+ (NEGATIVE); SPECIFIC GRAVITY URINE 1.008 (1.005-1.030); UROBILINOGEN URINE 0.2 E.U./dL (0.2-1.0)
[2019-12-07 05:47] LABS: BASOPHILS % 0.9 % (0.0-2.0); CHLORIDE 108 mEq/L (98-107); EOSINOPHILS % 8.9 % (0.0-5.0); HEMATOCRIT. 37.2 % (42.0-52.0); HEMOGLOBIN. 12.6 g/dL (14.0-18.0); LYMPHOCYTES % 29.4 % (20.0-50.0); MEAN CORPUSCULAR HEMOGLOBIN 31.6 pg (28.0-32.0); MEAN PLATELET VOLUME 8.4 fl (7.4-10.4); MONOCYTES % 10.1 % (2.0-8.0); NEUTROPHILS % 50.7 % (40.0-76.0); PLATELET 142 x1000/uL (130-400); RED CELL DISTRIBUTION WIDTH 15.7 % (11.6-14.6)
[2019-12-07 05:51] LABS: *AMPHETAMINES SCREEN URINE NEGATIVE (NEGATIVE); *BARBITURATES SCREEN URINE NEGATIVE (NEGATIVE); *BENZODIAZEPINES SCREEN URINE NEGATIVE (NEGATIVE); *COCAINE SCREEN URINE NEGATIVE (NEGATIVE)
[2019-12-07 05:52] LABS: CANNABINOID URINE SCREEN NEGATIVE (NEGATIVE); METHADONE URINE SCREEN NEGATIVE (NEGATIVE); OPIATES URINE SCREEN NEGATIVE (NEGATIVE); PHENCYCLIDINE URINE SCREEN NEGATIVE (NEGATIVE)
[2019-12-07 06:05] LABS: ETHANOL BLOOD 355 mg/dL
[2019-12-07 10:00] VITALS: BP 113/77
[2019-12-07] MEDS ORDERED: ACETAMINOPHEN 325MG TABLET PO ONE (10:15)
== END 2019-12-07 11:45 | disposition still patient (30) ==
LOC: ER 01:13
DX: L97.829 Non-pressure chronic ulcer of other part of left lower leg with unspecified severity (principal); Z48.00 Encounter for change or removal of nonsurgical wound dressing; F31.9 Bipolar disorder, unspecified; Z59.0 Homelessness
CPT/HCPCS: 36415; 80053; 80305; 80320; 81003; 85025; 99283; G0480

== ENCOUNTER 2019-12-10 21:37 | Emergency (ER) | payer MEDICAID ==
[~2019-12-10] VITALS: Ht 180.3 cm; Wt 75.0 kg
[2019-12-10] MEDS ORDERED: BACITRACIN ZINC OINT UDPKT TOP ONE (23:15)
[2019-12-10] MEDS ORDERED: IBUPROFEN 600MG TABLET PO STA (23:15)
[2019-12-11 03:03] LABS: EOSINOPHILS % 6.8 % (0.0-5.0); HEMATOCRIT. 36.1 % (42.0-52.0); HEMOGLOBIN. 12.3 g/dL (14.0-18.0); LYMPHOCYTES % 20.3 % (20.0-50.0); MEAN CORPUSCULAR HEMOGLOBIN 31.4 pg (28.0-32.0); MEAN CORPUSCULAR VOLUME 92.2 fL (80.0-94.0); MEAN PLATELET VOLUME 8.3 fl (7.4-10.4); MONOCYTES % 8.1 % (2.0-8.0); NEUTROPHILS % 63.8 % (40.0-76.0); PLATELET 175 x1000/uL (130-400); RED BLOOD CELL COUNT 3.92 mill/uL (4.7-6.1)
[2019-12-11 03:09] LABS: CHLORIDE 109 mEq/L (98-107)
[2019-12-11 03:22] LABS: ETHANOL BLOOD 331 mg/dL
[2019-12-11 09:05] VITALS: BP 134/96
== END 2019-12-11 09:40 | disposition home or self-care (01) ==
LOC: ER 21:37
DX: L03.116 Cellulitis of left lower limb (principal); E83.51 Hypocalcemia; Z59.0 Homelessness; F10.229 Alcohol dependence with intoxication, unspecified; Y90.0 Blood alcohol level of less than 20 mg/100 ml; F20.9 Schizophrenia, unspecified; Z79.899 Other long term (current) drug therapy; Z88.0 Allergy status to penicillin
CPT/HCPCS: 36415; 73610; 73630; 80048; 80307; 80320; 80329; 85025; 99284; G0480

== ENCOUNTER 2020-01-03 20:53 | Emergency (ER) | payer MEDICAID ==
[~2020-01-03] VITALS: Ht 185.4 cm; Wt 80.0 kg
[2020-01-03] MEDS ORDERED: SULFAMETHOXAZOLE/TRIMETHOPRIM 800/160MG TABLET PO ONE (22:45)
[2020-01-03] MEDS ORDERED: AZITHROMYCIN 500 MG TABLET PO ONE (22:45)
[2020-01-03 23:45] LABS: CHLORIDE 108 mEq/L (98-107)
[2020-01-03 23:46] LABS: BASOPHILS % 1.5 % (0.0-2.0); EOSINOPHILS % 4.5 % (0.0-5.0); HEMATOCRIT. 40.3 % (42.0-52.0); HEMOGLOBIN. 13.4 g/dL (14.0-18.0); LYMPHOCYTES % 27.3 % (20.0-50.0); MEAN CORPUSCULAR HEMOGLOBIN 31.2 pg (28.0-32.0); MEAN CORPUSCULAR VOLUME 94.1 fL (80.0-94.0); MEAN PLATELET VOLUME 9.2 fl (7.4-10.4); MONOCYTES % 6.3 % (2.0-8.0); NEUTROPHILS % 60.4 % (40.0-76.0); PLATELET 129 x1000/uL (130-400); RED BLOOD CELL COUNT 4.28 mill/uL (4.7-6.1); RED CELL DISTRIBUTION WIDTH 16.1 % (11.6-14.6)
[2020-01-04 00:13] LABS: ETHANOL BLOOD 437 mg/dL
[2020-01-04] MEDS ORDERED: LORAZEPAM 2MG/ML CPJ IV PRN (08:45)
[2020-01-04] MEDS ORDERED: ACETAMINOPHEN 325MG TABLET PO PRN (08:45)
[2020-01-04] MEDS ORDERED: HYDROCODONE/ACETAMINOPHEN 10/325MG TABLET PO PRN (08:45)
[2020-01-04] MEDS ORDERED: ONDANSETRON HCL 4MG/2ML INJ IV PRN (08:45)
[2020-01-04] MEDS ORDERED: VANCOMYCIN 1500MG in DEXTROSE 5% WATER 250ML IV SCH (10:00)
[2020-01-04] MEDS ORDERED: FOLIC ACID 1 MG, THIAMINE HCL 100 MG, MVI, ADULT NO.1 10 ML in DEXTROSE 5% WATER 1,000 ML IV NR ×4 (10:30)
[2020-01-04] MEDS ORDERED: DIPHENHYDRAMINE 50MG/ML VIAL IV NR (12:30)
[2020-01-04 15:58] VITALS: BP 142/88
[2020-01-04] MEDS ORDERED: VANCOMYCIN 1250MG in DEXTROSE 5% WATER 250ML IV SCH (22:00)
[2020-01-07] MEDS ORDERED: THIA100T72 PO (13:47)
== END 2020-01-04 16:04 | disposition home or self-care (01) ==
LOC: ER 21:11 → CANBEDREQ 01-04 16:40
DX: L03.116 Cellulitis of left lower limb (principal); B87.1 Wound myiasis; F23 Brief psychotic disorder; F10.229 Alcohol dependence with intoxication, unspecified; Y90.8 Blood alcohol level of 240 mg/100 ml or more; R45.851 Suicidal ideations; Z88.0 Allergy status to penicillin; Z87.828 Personal history of other (healed) physical injury and trauma; Z91.14 Patient's other noncompliance with medication regimen
CPT/HCPCS: 36415; 80048; 80076; 80307; 80320; 80329; 85025; 93005; 96365; 96368; 96375; 99285; J1200; J3370; J3411; J3490; J7060; J7070; G0480

== ENCOUNTER 2020-01-04 16:21 | Inpatient (IN) | payer MEDICAID ==
[~2020-01-04] VITALS: Ht 175.3 cm; Wt 74.8 kg
[2020-01-04] MEDS ORDERED: SODIUM CHLORIDE 0.9% 1,000 ML IV ONE (17:05)
[2020-01-04] MEDS ORDERED: METOCLOPRAMIDE HCL 10MG/2ML VIAL IV STA (17:05)
[2020-01-04] MEDS ORDERED: PANTOPRAZOLE SODIUM 40 MG/VIAL IV STA (17:05)
[2020-01-04] MEDS ORDERED: OCTREOTIDE ACETATE 50 MCG/ML 1ML IV ONE (17:15)
[2020-01-04] MEDS ORDERED: LORAZEPAM 2MG/ML CPJ IV ONE (17:15)
[2020-01-04 17:39] LABS: BASOPHILS % 1.1 % (0.0-2.0); EOSINOPHILS % 2.7 % (0.0-5.0); HEMOGLOBIN. 12.6 g/dL (14.0-18.0); LYMPHOCYTES % 11.8 % (20.0-50.0); MEAN CORPUSCULAR HEMOGLOBIN 31.3 pg (28.0-32.0); MEAN CORPUSCULAR VOLUME 94.3 fL (80.0-94.0); MEAN PLATELET VOLUME 9.4 fl (7.4-10.4); NEUTROPHILS % 76.4 % (40.0-76.0); PLATELET 127 x1000/uL (130-400); RED BLOOD CELL COUNT 4.03 mill/uL (4.7-6.1); RED CELL DISTRIBUTION WIDTH 15.4 % (11.6-14.6)
[2020-01-04 17:44] LABS: CHLORIDE 102 mEq/L (98-107)
[2020-01-04 17:46] LABS: PROTHROMBIN TIME 10.8 sec (9.6-11.0)
[2020-01-04 17:47] LABS: ETHANOL BLOOD 11 mg/dL
[2020-01-04 21:08] LABS: CLARITY URINE CLEAR (CLEAR); COLOR URINE YELLOW (YELLOW); KETONES URINE NEGATIVE (NEGATIVE); LEUKOCYTE ESTERASE URINE NEGATIVE (NEGATIVE); NITRITE URINE NEGATIVE (NEGATIVE); OCCULT BLOOD URINE 2+ (NEGATIVE); PROTEIN URINE 2+ (NEGATIVE); SPECIFIC GRAVITY URINE 1.026 (1.005-1.030); UROBILINOGEN URINE 0.2 E.U./dL (0.2-1.0)
[2020-01-04] MEDS ORDERED: IOHEXOL-300 100 ML BOTTLE ONE (21:28)
[2020-01-04 21:36] LABS: METHADONE URINE SCREEN NEGATIVE (NEGATIVE); OPIATES URINE SCREEN NEGATIVE (NEGATIVE)
[2020-01-04 21:37] LABS: *AMPHETAMINES SCREEN URINE NEGATIVE (NEGATIVE); *BARBITURATES SCREEN URINE NEGATIVE (NEGATIVE); *BENZODIAZEPINES SCREEN URINE NEGATIVE (NEGATIVE); *COCAINE SCREEN URINE NEGATIVE (NEGATIVE); CANNABINOID URINE SCREEN NEGATIVE (NEGATIVE); PHENCYCLIDINE URINE SCREEN NEGATIVE (NEGATIVE)
[2020-01-05] VITALS (7 sets, daily range): BP systolic 124–152; BP diastolic 83–90
[2020-01-05] MEDS ORDERED: LORAZEPAM 2MG/ML CPJ IV PRN (00:45)
[2020-01-05] MEDS: CHLORDIAZEPOXIDE 25MG CAPSULE PO SCH ×3 (02:18→17:19)
[2020-01-05] MEDS: SODIUM CHLORIDE 0.9% 1,000 ML IV SCH ×2 (02:18→17:20)
[2020-01-05 06:11] LABS: BASOPHILS % 0.5 % (0.0-2.0); EOSINOPHILS % 3.4 % (0.0-5.0); HEMOGLOBIN. 13.1 g/dL (14.0-18.0); LYMPHOCYTES % 10.5 % (20.0-50.0); MEAN CORPUSCULAR HEMOGLOBIN 31.4 pg (28.0-32.0); MEAN CORPUSCULAR VOLUME 93.9 fL (80.0-94.0); MEAN PLATELET VOLUME 8.7 fl (7.4-10.4); NEUTROPHILS % 74.6 % (40.0-76.0); PLATELET 95 x1000/uL (130-400); RED BLOOD CELL COUNT 4.15 mill/uL (4.7-6.1); RED CELL DISTRIBUTION WIDTH 15.4 % (11.6-14.6)
[2020-01-05 06:37] LABS: CHLORIDE 102 mEq/L (98-107)
[2020-01-05] MEDS ORDERED: LEVETIRACETAM 500MG TABLET PO SCH (09:00)
[2020-01-05] MEDS ORDERED: HEPARIN 5000 UNITS/ML VIAL SUBCUT SCH (09:00)
[2020-01-05] MEDS ORDERED: POTASSIUM CHLORIDE 10MEQ TABLET SR PO NR (13:15)
[2020-01-05] MEDS: QUETIAPINE FUMARATE 25MG TABLET PO SCH (17:19)
[2020-01-05] MEDS: PHENYTOIN SODIUM EXTENDED 100MG CAPSULE PO SCH (17:19)
[2020-01-05] MEDS: SULFAMETHOXAZOLE/TRIMETHOPRIM 400/80MG TAB PO SCH (17:19)
[2020-01-05] MEDS: OLANZAPINE 10MG TABLET PO SCH (20:42)
[2020-01-06] VITALS: BP 131/81
[2020-01-06 04:00] VITALS: BP 124/83
[2020-01-06 06:56] LABS: BASOPHILS % 0.6 % (0.0-2.0); EOSINOPHILS % 5.6 % (0.0-5.0); HEMATOCRIT. 37.3 % (42.0-52.0); HEMOGLOBIN. 12.4 g/dL (14.0-18.0); LYMPHOCYTES % 15.5 % (20.0-50.0); MEAN CORPUSCULAR HEMOGLOBIN 31.3 pg (28.0-32.0); MEAN PLATELET VOLUME 9.9 fl (7.4-10.4); MONOCYTES % 9.4 % (2.0-8.0); NEUTROPHILS % 68.9 % (40.0-76.0); PLATELET 116 x1000/uL (130-400); RED BLOOD CELL COUNT 3.97 mill/uL (4.7-6.1)
[2020-01-06 07:08] LABS: CHLORIDE 105 mEq/L (98-107)
[2020-01-06 08:00] VITALS: BP 117/79
[2020-01-06] MEDS: QUETIAPINE FUMARATE 25MG TABLET PO SCH ×2 (09:08→17:35)
[2020-01-06] MEDS: PHENYTOIN SODIUM EXTENDED 100MG CAPSULE PO SCH ×3 (09:08→17:35)
[2020-01-06] MEDS: CHLORDIAZEPOXIDE 25MG CAPSULE PO SCH (09:08)
[2020-01-06] MEDS: SULFAMETHOXAZOLE/TRIMETHOPRIM 400/80MG TAB PO SCH ×2 (09:08→17:35)
[2020-01-06] MEDS ORDERED: POTASSIUM CHLORIDE 20MEQ TABLET SR PO NR (10:00)
[2020-01-06 12:00] VITALS: BP 120/81
[2020-01-06] MEDS: FOLIC ACID 1MG TABLET PO SCH (12:26)
[2020-01-06] MEDS: THIAMINE HCL 100MG TABLET PO SCH (12:26)
[2020-01-06] MEDS: MULTIVITAMINS,THER W-MINERALS TABLET PO SCH (12:26)
[2020-01-06] MEDS: SODIUM CHLORIDE 0.9% 1,000 ML IV SCH (13:08)
[2020-01-06 20:00] VITALS: BP 125/71
[2020-01-06] MEDS: OLANZAPINE 10MG TABLET PO SCH (20:06)
[2020-01-07] VITALS: BP 108/75
[2020-01-07 07:30] LABS: BASOPHILS % 0.8 % (0.0-2.0); EOSINOPHILS % 5.6 % (0.0-5.0); HEMATOCRIT. 37.2 % (42.0-52.0); HEMOGLOBIN. 12.4 g/dL (14.0-18.0); LYMPHOCYTES % 17.1 % (20.0-50.0); MEAN CORPUSCULAR HEMOGLOBIN 31.7 pg (28.0-32.0); MEAN CORPUSCULAR VOLUME 95.5 fL (80.0-94.0); MEAN PLATELET VOLUME 10.3 fl (7.4-10.4); MONOCYTES % 12.2 % (2.0-8.0); NEUTROPHILS % 64.3 % (40.0-76.0); PLATELET 128 x1000/uL (130-400); RED CELL DISTRIBUTION WIDTH 15.3 % (11.6-14.6)
[2020-01-07 07:48] VITALS: BP 113/74
[2020-01-07 07:54] LABS: CHLORIDE 106 mEq/L (98-107)
[2020-01-07] MEDS: MULTIVITAMINS,THER W-MINERALS TABLET PO SCH (08:42)
[2020-01-07] MEDS: THIAMINE HCL 100MG TABLET PO SCH (08:42)
[2020-01-07] MEDS: SULFAMETHOXAZOLE/TRIMETHOPRIM 400/80MG TAB PO SCH (08:42)
[2020-01-07] MEDS: PHENYTOIN SODIUM EXTENDED 100MG CAPSULE PO SCH ×2 (08:42→13:04)
[2020-01-07] MEDS: FOLIC ACID 1MG TABLET PO SCH (08:42)
[2020-01-07] MEDS: QUETIAPINE FUMARATE 25MG TABLET PO SCH (08:42)
[2020-01-07] MEDS ORDERED: CHLORDIAZEPOXIDE 25MG CAPSULE PO SCH (09:00)
[2020-01-07] MEDS ORDERED: MAGNESIUM OXIDE 400MG TABLET PO SCH (11:00)
[2020-01-07 11:52] VITALS: BP 107/57
[2020-01-07] MEDS ORDERED: THIA100T72 PO (13:47)
[2020-01-07] MEDS ORDERED: LACTULOSE 20G/30ML UDC PO NR (14:00)
[2020-01-07] MEDS: SODIUM CHLORIDE 0.9% 1,000 ML IV SCH (15:15)
[2020-01-07] MEDS ORDERED: MAGNESIUM 2 G PREMIX 50 ML IV NR (15:30)
== END 2020-01-07 15:45 | disposition home or self-care (01) | DRG 53 ==
LOC: ER 16:21 → MICUSO 21:51 → EDBEDREQ 21:54 → EDBEDREQTM 21:54 → 8WST 22:45
PROVIDERS: ADMIT Internal Medicine; ATTEND Internal Medicine
DX: G40.909 Epilepsy, unspecified, not intractable, without status epilepticus (principal); Y90.0 Blood alcohol level of less than 20 mg/100 ml; D69.6 Thrombocytopenia, unspecified; E87.1 Hypo-osmolality and hyponatremia; E87.2 Acidosis; E87.6 Hypokalemia; F20.9 Schizophrenia, unspecified; F31.9 Bipolar disorder, unspecified; K76.0 Fatty (change of) liver, not elsewhere classified; L85.3 Xerosis cutis; E46 Unspecified protein-calorie malnutrition; K70.10 Alcoholic hepatitis without ascites; E03.9 Hypothyroidism, unspecified; E83.42 Hypomagnesemia; E83.51 Hypocalcemia; E72.20 Disorder of urea cycle metabolism, unspecified; Z72.0 Tobacco use; Z91.19 Patient's noncompliance with other medical treatment and regimen; Z88.0 Allergy status to penicillin; Z79.899 Other long term (current) drug therapy; G93.41 Metabolic encephalopathy; F10.239 Alcohol dependence with withdrawal, unspecified
CPT/HCPCS: 36415; 71045; 74177; 80048; 80053; 80305; 80320; 81003; 82140; 83605; 83735; 84443; 84484; 85025; 93005; 93306; 96365; 99285; C9113; J2060; J2354; J2765; J3475; J7030; Q9967; G0480

== ENCOUNTER 2020-01-15 22:22 | Emergency (ER) | payer MEDICAID ==
[~2020-01-15] VITALS: Ht 182.9 cm; Wt 73.0 kg
[~2020-01-15 22:22] MED LIST changes: -DILANTIN; -PHENOBARBITAL; -RISPERDAL; -SEROQUEL; -SULF1TAB47 MT; +THIA100T72 PO
[2020-01-15] MEDS ORDERED: LORAZEPAM 2MG/ML CPJ ONE (22:52)
[2020-01-16 00:40] LABS: BASOPHILS % 0.8 % (0.0-2.0); EOSINOPHILS % 3.1 % (0.0-5.0); HEMATOCRIT. 38.1 % (42.0-52.0); HEMOGLOBIN. 12.6 g/dL (14.0-18.0); LYMPHOCYTES % 15.7 % (20.0-50.0); MEAN CORPUSCULAR HEMOGLOBIN 31.5 pg (28.0-32.0); MEAN PLATELET VOLUME 8.1 fl (7.4-10.4); MONOCYTES % 4.3 % (2.0-8.0); NEUTROPHILS % 76.1 % (40.0-76.0); PLATELET 254 x1000/uL (130-400); RED BLOOD CELL COUNT 4.01 mill/uL (4.7-6.1); RED CELL DISTRIBUTION WIDTH 15.5 % (11.6-14.6)
[2020-01-16 00:43] LABS: CHLORIDE 111 mEq/L (98-107)
[2020-01-16 01:08] LABS: ETHANOL BLOOD 470 mg/dL
[2020-01-16 01:51] LABS: PROTHROMBIN TIME 10.4 sec (9.6-11.0)
[2020-01-16 12:44] VITALS: BP 129/70
== END 2020-01-16 12:50 | disposition home or self-care (01) ==
LOC: ER 22:22 → CANBEDREQ 01-16 02:50 → ER 01-16 12:50
DX: F10.129 Alcohol abuse with intoxication, unspecified (principal); Y90.8 Blood alcohol level of 240 mg/100 ml or more; R56.9 Unspecified convulsions; Z88.0 Allergy status to penicillin
CPT/HCPCS: 36415; 70450; 80053; 80320; 82962; 85025; 85610; 93005; 99285; J2060; G0480

== ENCOUNTER 2020-04-27 20:53 | Emergency (ER) | payer MEDICAID ==
[~2020-04-27] VITALS: Ht 188 cm; Wt 75.0 kg
[2020-04-27] MEDS ORDERED: ACETAMINOPHEN 650MG/20.3ML UDC PO ONE (22:15)
[2020-04-27 22:21] VITALS: BP 125/80
== END 2020-04-27 22:22 | disposition home or self-care (01) ==
LOC: ER 20:53
DX: G89.29 Other chronic pain (principal); K08.89 Other specified disorders of teeth and supporting structures; F31.9 Bipolar disorder, unspecified; Z88.0 Allergy status to penicillin
CPT/HCPCS: 99282

== ENCOUNTER 2024-02-03 16:20 | Emergency (ER) | payer MEDICAID ==
[~2024-02-03] VITALS: Ht 185.4 cm; Wt 80.0 kg
[2024-02-03 16:24] VITALS: BP 123/74; PULSE 98; RESP 16; TEMP 98.3; O2SAT 98
== END 2024-02-03 17:39 | disposition left against medical advice (07) ==
LOC: ER 16:20
DX: S00.12XA Contusion of left eyelid and periocular area, initial encounter (principal); F10.129 Alcohol abuse with intoxication, unspecified; F31.9 Bipolar disorder, unspecified; F20.9 Schizophrenia, unspecified; Z88.0 Allergy status to penicillin; X58.XXXA Exposure to other specified factors, initial encounter; Y93.89 Activity, other specified; Y92.89 Other specified places as the place of occurrence of the external cause; Y99.8 Other external cause status; Y90.9 Presence of alcohol in blood, level not specified
CPT/HCPCS: 99281

== ENCOUNTER 2024-06-09 13:21 | Emergency (ER) | payer MEDICAID ==
[~2024-06-09] VITALS: Ht 188 cm; Wt 83.0 kg
[2024-06-09 13:25] VITALS: BP 167/99; PULSE 93; RESP 16; TEMP 98.3; O2SAT 98
[2024-06-09 14:28] LABS: BASOPHILS % 0.8 % (0.0-2.0); HEMATOCRIT. 36.6 % (42.0-52.0); HEMOGLOBIN. 11.7 g/dL (14.0-18.0); LYMPHOCYTES % 21.4 % (20.0-50.0); MEAN CORPUSCULAR HEMOGLOBIN 30.8 pg (28.0-32.0); MEAN CORPUSCULAR VOLUME 96.1 fL (80.0-94.0); MEAN PLATELET VOLUME 8.7 fl (7.4-10.4); MONOCYTES % 8.5 % (2.0-8.0); NEUTROPHILS % 67.3 % (40.0-76.0); PLATELET 183 x1000/uL (130-400); RED BLOOD CELL COUNT 3.81 mill/uL (4.7-6.1); RED CELL DISTRIBUTION WIDTH 14.5 % (11.6-14.6); WHITE BLOOD COUNT 5.2 x1000/uL (4.5-11.0)
[2024-06-09 14:36] LABS: CHLORIDE 105 mEq/L (98-107); POTASSIUM 3.9 mEq/L (3.5-5.1); SODIUM 138 mEq/L (136-145)
[2024-06-09 14:37] LABS: CALCIUM 8.8 mg/dL (8.7-10.4); CARBON DIOXIDE 26 mEq/L (21-32)
[2024-06-09 14:42] LABS: CREATININE 0.8 mg/dL (0.6-1.3); GLUCOSE 76 mg/dL (70-105); UREA NITROGEN BLOOD 7 mg/dL (9-23)
[2024-06-09 14:44] LABS: ALANINE AMINOTRANSFERASE 31 IU/L (10-49); ALBUMIN 4.2 g/dL (3.2-4.8); ASPARTATE AMINOTRANSFERASE 45 IU/L (<34); BILIRUBIN TOTAL 0.5 mg/dL (0.1-1.0); PROTEIN TOTAL 7.8 g/dL (6.0-8.3)
[2024-06-09] MEDS ORDERED: ACET-2708 MT (17:46)
== END 2024-06-10 02:01 | disposition home or self-care (01) ==
LOC: ER 13:21
DX: F10.129 Alcohol abuse with intoxication, unspecified (principal); F17.210 Nicotine dependence, cigarettes, uncomplicated; F20.9 Schizophrenia, unspecified; F31.9 Bipolar disorder, unspecified; G31.9 Degenerative disease of nervous system, unspecified; I10 Essential (primary) hypertension; Z79.899 Other long term (current) drug therapy; Z88.0 Allergy status to penicillin; Y90.9 Presence of alcohol in blood, level not specified
CPT/HCPCS: 36415; 80053; 83735; 85025; 93005; 99284

== ENCOUNTER 2024-08-19 20:33 | Emergency (ER) | payer MEDICAID ==
[~2024-08-19] VITALS: Ht 177.8 cm; Wt 77.0 kg
[~2024-08-19 20:33] MED LIST changes: +ACET-2708 MT
[2024-08-19 20:43] VITALS: BP 158/94; PULSE 80; RESP 16; TEMP 36.8; O2SAT 98
[2024-08-20 01:28] LABS: BASOPHILS % 0.6 % (0.0-2.0); EOSINOPHILS % 1.8 % (0.0-5.0); HEMATOCRIT. 38.8 % (42.0-52.0); LYMPHOCYTES % 32.7 % (20.0-50.0); MEAN CORPUSCULAR HEMOGLOBIN 31.6 pg (28.0-32.0); MEAN CORPUSCULAR HGB CONC 33.5 g/dL (31.0-37.0); MEAN CORPUSCULAR VOLUME 94.2 fL (80.0-94.0); MEAN PLATELET VOLUME 8.9 fl (7.4-10.4); MONOCYTES % 9.6 % (2.0-8.0); NEUTROPHILS % 55.3 % (40.0-76.0); PLATELET 114 x1000/uL (130-400); RED BLOOD CELL COUNT 4.12 mill/uL (4.7-6.1); RED CELL DISTRIBUTION WIDTH 13.3 % (11.6-14.6); WHITE BLOOD COUNT 4.1 x1000/uL (4.5-11.0)
[2024-08-20 01:29] LABS: CHLORIDE 105 mEq/L (98-107); POTASSIUM 3.5 mEq/L (3.5-5.1); SODIUM 141 mEq/L (136-145)
[2024-08-20 01:30] LABS: CARBON DIOXIDE 24 mEq/L (21-32)
[2024-08-20 01:31] LABS: CALCIUM 8.7 mg/dL (8.7-10.4)
[2024-08-20 01:35] LABS: CREATININE 0.7 mg/dL (0.6-1.3); GLUCOSE 85 mg/dL (70-105)
[2024-08-20 01:36] LABS: UREA NITROGEN BLOOD 5 mg/dL (9-23)
[2024-08-20 01:45] LABS: ETHANOL BLOOD 337 mg/dL (<10)
[2024-08-20] MEDS: ACETAMINOPHEN 500MG TABLET PO ONE (02:36)
[2024-08-20] MEDS ORDERED: IBUP-2028 PO (06:17)
== END 2024-08-20 05:32 | disposition home or self-care (01) ==
LOC: ER 20:33
DX: S20.229A Contusion of unspecified back wall of thorax, initial encounter (principal); F10.229 Alcohol dependence with intoxication, unspecified; F31.9 Bipolar disorder, unspecified; F20.9 Schizophrenia, unspecified; I10 Essential (primary) hypertension; Z79.899 Other long term (current) drug therapy; Z88.0 Allergy status to penicillin; W19.XXXA Unspecified fall, initial encounter; Y93.89 Activity, other specified; Y92.89 Other specified places as the place of occurrence of the external cause; Y99.8 Other external cause status
CPT/HCPCS: 36415; 80048; 80320; 85025; 99283; G0480

== ENCOUNTER 2024-08-20 05:47 | Emergency (ER) | payer MEDICAID ==
[~2024-08-20] VITALS: Ht 185.4 cm; Wt 64.0 kg
[2024-08-20 05:55] VITALS: O2SAT 98
[2024-08-20] MEDS ORDERED: IBUP-2028 PO (06:17)
[2024-08-20] MEDS: ACETAMINOPHEN 325MG TABLET PO ONE (06:30)
[2024-08-20] MEDS: IBUPROFEN 400MG TABLET PO ONE (06:33)
[2024-08-20 10:22] VITALS: BP 138/88; PULSE 88; RESP 14; TEMP 36.6; O2SAT 98
== END 2024-08-20 10:24 | disposition home or self-care (01) ==
LOC: ER 05:47
DX: G89.29 Other chronic pain (principal); M54.9 Dorsalgia, unspecified; I10 Essential (primary) hypertension; F31.9 Bipolar disorder, unspecified; Z88.0 Allergy status to penicillin; Z79.899 Other long term (current) drug therapy; Z86.59 Personal history of other mental and behavioral disorders
CPT/HCPCS: 99283; Z7610 ×2; A4606

== ENCOUNTER 2024-09-12 13:16 | Emergency (ER) | payer MEDICAID ==
[~2024-09-12] VITALS: Ht 182.9 cm; Wt 82.0 kg
[~2024-09-12 13:16] MED LIST changes: +IBUP-2028 PO
[2024-09-12 13:18] VITALS: BP 146/111; PULSE 80; RESP 18; TEMP 36.9; O2SAT 98
[2024-09-12] MEDS: IBUPROFEN 600MG TABLET PO ONE (13:39)
[2024-09-12] MEDS: CYCLOBENZAPRINE 10MG TABLET PO ONE (13:39)
[2024-09-12] MEDS: MULTIVITAMINS,THER W-MINERALS TABLET PO SCH (13:39)
[2024-09-12] MEDS: CYCLOBENZAPRINE 10MG TABLET PO SCH (13:40)
[2024-09-12] MEDS ORDERED: THIA100T72 PO (14:48)
[2024-09-12] MEDS ORDERED: FOLI-43 MT (14:48)
[2024-09-12] MEDS ORDERED: IBUP-2029 MT (14:48)
== END 2024-09-12 15:13 | disposition home or self-care (01) ==
LOC: ER 13:28
DX: M54.59 Other low back pain (principal); F10.10 Alcohol abuse, uncomplicated; F20.9 Schizophrenia, unspecified; I10 Essential (primary) hypertension; Z79.1 Long term (current) use of non-steroidal anti-inflammatories (NSAID); Z79.899 Other long term (current) drug therapy; Z88.0 Allergy status to penicillin; Y90.9 Presence of alcohol in blood, level not specified
CPT/HCPCS: 72131; 99284

== ENCOUNTER 2024-09-14 13:38 | Emergency (ER) | payer MEDICAID ==
[~2024-09-14] VITALS: Ht 182.9 cm; Wt 82.0 kg
[~2024-09-14 13:38] MED LIST changes: +FOLI-43 MT; +IBUP-2029 MT
[2024-09-14 13:41] VITALS: O2SAT 100
[2024-09-14] MEDS: ONDANSETRON HCL 4MG/2ML INJ IV STA (14:25)
[2024-09-14] MEDS: SODIUM CHLORIDE 0.9% 1,000 ML IV ONE (14:25)
[2024-09-14] MEDS: PHENYTOIN SODIUM 100MG/2ML VIAL IV ONE (14:25)
[2024-09-14 14:38] LABS: CHLORIDE 100 mEq/L (98-107); POTASSIUM 3.9 mEq/L (3.5-5.1); SODIUM 135 mEq/L (136-145)
[2024-09-14 14:39] LABS: CALCIUM 9.5 mg/dL (8.7-10.4); CARBON DIOXIDE 18 mEq/L (21-32)
[2024-09-14 14:44] LABS: CREATININE 0.8 mg/dL (0.6-1.3); GLUCOSE 89 mg/dL (70-105); UREA NITROGEN BLOOD 9 mg/dL (9-23)
[2024-09-14 14:46] LABS: ALANINE AMINOTRANSFERASE 41 IU/L (10-49); ALBUMIN 4.6 g/dL (3.2-4.8); ASPARTATE AMINOTRANSFERASE 69 IU/L (<34); BILIRUBIN DIRECT 0.3 mg/dL (<=3.0); BILIRUBIN TOTAL 1.4 mg/dL (0.1-1.0); PROTEIN TOTAL 8.6 g/dL (6.0-8.3)
[2024-09-14 14:47] LABS: BASOPHILS % 0.8 % (0.0-2.0); EOSINOPHILS % 0.4 % (0.0-5.0); HEMATOCRIT. 41.6 % (42.0-52.0); HEMOGLOBIN. 13.3 g/dL (14.0-18.0); LYMPHOCYTES % 10.8 % (20.0-50.0); MEAN CORPUSCULAR HEMOGLOBIN 30.7 pg (28.0-32.0); MEAN CORPUSCULAR HGB CONC 31.9 g/dL (31.0-37.0); MEAN CORPUSCULAR VOLUME 96.1 fL (80.0-94.0); MEAN PLATELET VOLUME 9.7 fl (7.4-10.4); MONOCYTES % 5.2 % (2.0-8.0); NEUTROPHILS % 82.8 % (40.0-76.0); PLATELET 168 x1000/uL (130-400); RED BLOOD CELL COUNT 4.33 mill/uL (4.7-6.1); RED CELL DISTRIBUTION WIDTH 14.1 % (11.6-14.6); WHITE BLOOD COUNT 6.9 x1000/uL (4.5-11.0)
[2024-09-14 14:50] LABS: ETHANOL BLOOD < 10 mg/dL (<10)
[2024-09-14 17:15] LABS: CLARITY URINE CLEAR (CLEAR); COLOR URINE YELLOW (YELLOW); GLUCOSE URINE NEGATIVE (NEGATIVE); KETONES URINE TRACE (NEGATIVE); LEUKOCYTE ESTERASE URINE NEGATIVE (NEGATIVE); NITRITE URINE NEGATIVE (NEGATIVE); OCCULT BLOOD URINE TRACE (NEGATIVE); PH URINE 7.5 (4.5-8.0); PROTEIN URINE NEGATIVE (NEGATIVE); SPECIFIC GRAVITY URINE 1.007 (1.005-1.030)
[2024-09-14 17:31] LABS: *AMPHETAMINES SCREEN URINE NEGATIVE (NEGATIVE); *BARBITURATES SCREEN URINE NEGATIVE (NEGATIVE); *BENZODIAZEPINES SCREEN URINE NEGATIVE (NEGATIVE); *COCAINE SCREEN URINE NEGATIVE (NEGATIVE); CANNABINOID URINE SCREEN NEGATIVE (NEGATIVE); ECSTASY MDMA SCREEN URINE NEGATIVE (NEGATIVE); METHADONE URINE SCREEN NEGATIVE (NEGATIVE); OPIATES URINE SCREEN NEGATIVE (NEGATIVE); PHENCYCLIDINE URINE SCREEN NEGATIVE (NEGATIVE)
[2024-09-14 17:35] LABS: BACTERIA URINE NONE SEEN; RBC URINE 0-2 /hpf (0-2); SQUAMOUS EPITHELIAL CELL URINE RARE /lpf (RARE/1+); WBC URINE NONE SEEN /hpf (0-2)
[2024-09-14 19:24] VITALS: BP 149/98; PULSE 88; RESP 16; TEMP 36.8; O2SAT 100
== END 2024-09-14 19:46 | disposition home or self-care (01) ==
LOC: ER 13:38
DX: R56.9 Unspecified convulsions (principal); F20.9 Schizophrenia, unspecified; I10 Essential (primary) hypertension; F17.200 Nicotine dependence, unspecified, uncomplicated; Z79.899 Other long term (current) drug therapy; Z79.1 Long term (current) use of non-steroidal anti-inflammatories (NSAID); Z88.0 Allergy status to penicillin
CPT/HCPCS: 80076; 80305; 80048; 81003; 80320; 85025; 36415; 71045; 70450; 93005; 96361; 96374; 96375; 99285; J2405; J1165; J7030; Z7610; G0480

== ENCOUNTER 2024-10-29 02:14 | Emergency (ER) | payer MEDICAID ==
[~2024-10-29] VITALS: Ht 182.9 cm; Wt 82.0 kg
[2024-10-29 02:29] VITALS: O2SAT 100
[2024-10-29] MEDS: IBUPROFEN 400MG TABLET PO ONE (04:13)
[2024-10-29] MEDS: OLANZAPINE 5MG TABLET PO SCH (05:04)
[2024-10-29 05:19] VITALS: BP 154/84; PULSE 68; RESP 18; TEMP 36.8; O2SAT 100
[2024-11-01] MEDS ORDERED: THIA100T72 PO (13:02)
[2024-11-01] MEDS ORDERED: QUET25TA PO (13:02)
[2024-11-01] MEDS ORDERED: FOLI-43 MT (13:02)
[2024-11-01] MEDS ORDERED: PHEN100C4 MT (13:02)
== END 2024-10-29 05:22 | disposition home or self-care (01) ==
LOC: ER 02:41
DX: F10.129 Alcohol abuse with intoxication, unspecified (principal); I10 Essential (primary) hypertension; F20.9 Schizophrenia, unspecified; Z88.0 Allergy status to penicillin; Z79.899 Other long term (current) drug therapy; Y90.9 Presence of alcohol in blood, level not specified
CPT/HCPCS: 82962; 99283

== ENCOUNTER 2025-02-17 18:07 | Emergency (ER) | payer OTHER ==
[~2025-02-17] VITALS: Ht 180.3 cm; Wt 72.0 kg
[~2025-02-17 18:07] MED LIST changes: -IBUP-2029 MT
[2025-02-17 18:13] VITALS: O2SAT 98
[2025-02-17] MEDS: ACETAMINOPHEN 325MG TABLET PO ONE (19:38)
[2025-02-18 00:25] VITALS: BP 113/68; PULSE 76; RESP 16; TEMP 36.7; O2SAT 99
== END 2025-02-18 00:30 | disposition home or self-care (01) ==
LOC: ER 18:07
DX: S83.91XA Sprain of unspecified site of right knee, initial encounter (principal); F10.129 Alcohol abuse with intoxication, unspecified; F19.10 Other psychoactive substance abuse, uncomplicated; F20.9 Schizophrenia, unspecified; F32.A Depression, unspecified; Z79.1 Long term (current) use of non-steroidal anti-inflammatories (NSAID); Z79.899 Other long term (current) drug therapy; Z88.0 Allergy status to penicillin; Y90.9 Presence of alcohol in blood, level not specified; W18.39XA Other fall on same level, initial encounter; Y93.89 Activity, other specified; Y92.89 Other specified places as the place of occurrence of the external cause; Y99.8 Other external cause status
CPT/HCPCS: 73562; 73610; 99284

== ENCOUNTER 2025-03-17 22:06 | Emergency (ER) | payer OTHER ==
[~2025-03-17] VITALS: Ht 172.7 cm; Wt 66.0 kg
[2025-03-17 22:09] VITALS: O2SAT 99
[2025-03-17] MEDS: TETANUS, DIPHTHERIA, PERTUSSIS VAC/PF 0.5ML (>10YR OLD) IM ONE (22:38)
[2025-03-18] MEDS ORDERED: CLONIDINE 0.1MG TABLET PO PRN (05:15)
[2025-03-18] MEDS ORDERED: ONDANSETRON HCL 4MG/2ML INJ IV PRN (05:15)
[2025-03-18] MEDS ORDERED: MAGNESIUM/ALUMINUM HYDROXIDE/SIMETHICONE 30ML UDC PO PRN (05:15)
[2025-03-18] MEDS ORDERED: IPRATROPIUM/ALBUTEROL 0.5-3(2.5)MG/3ML NEB HHN PRN (05:15)
[2025-03-18] MEDS ORDERED: LORAZEPAM 2MG/ML UD SYRINGE IV PRN (05:15)
[2025-03-18] MEDS ORDERED: DOCUSATE SODIUM 100MG CAPSULE PO PRN (05:15)
[2025-03-18] MEDS ORDERED: GUAIFENESIN 200MG/10ML SUGAR FREE UDC PO PRN (05:15)
[2025-03-18] MEDS ORDERED: ACETAMINOPHEN 325MG TABLET PO PRN ×2 (05:15)
[2025-03-18] MEDS ORDERED: MVI, ADULT NO.1 10 ML, FOLIC ACID 1 MG, THIAMINE HCL 100 MG in SODIUM CHLORIDE 0.9% 1,0... IV NR (05:30)
[2025-03-18] MEDS ORDERED: CHLORDIAZEPOXIDE 25MG CAPSULE PO SCH (06:00)
[2025-03-18] MEDS ORDERED: PHENYTOIN SODIUM EXTENDED 100MG CAPSULE PO SCH (06:00)
[2025-03-18 06:26] VITALS: BP 129/78; PULSE 97; RESP 19; TEMP 36.6; O2SAT 98
[2025-03-18 06:51] LABS: CLARITY URINE CLEAR (CLEAR); COLOR URINE YELLOW (YELLOW); GLUCOSE URINE NEGATIVE (NEGATIVE); KETONES URINE NEGATIVE (NEGATIVE); LEUKOCYTE ESTERASE URINE NEGATIVE (NEGATIVE); NITRITE URINE NEGATIVE (NEGATIVE); OCCULT BLOOD URINE NEGATIVE (NEGATIVE); PH URINE 5.0 (4.5-8.0); PROTEIN URINE 1+ (NEGATIVE); SPECIFIC GRAVITY URINE 1.006 (1.005-1.030); UROBILINOGEN URINE 0.2 E.U./dL (0.2-1.0)
[2025-03-18 07:31] LABS: *AMPHETAMINES SCREEN URINE NEGATIVE (NEGATIVE); *BARBITURATES SCREEN URINE NEGATIVE (NEGATIVE); *BENZODIAZEPINES SCREEN URINE PRESUMPTIVE POSITIVE (NEGATIVE)
[2025-03-18 07:32] LABS: *COCAINE SCREEN URINE NEGATIVE (NEGATIVE); CANNABINOID URINE SCREEN NEGATIVE (NEGATIVE); ECSTASY MDMA SCREEN URINE NEGATIVE (NEGATIVE); METHADONE URINE SCREEN NEGATIVE (NEGATIVE); OPIATES URINE SCREEN NEGATIVE (NEGATIVE); PHENCYCLIDINE URINE SCREEN NEGATIVE (NEGATIVE)
[2025-03-18 07:39] LABS: BACTERIA URINE NONE SEEN; RBC URINE NONE SEEN /hpf (0-2); SQUAMOUS EPITHELIAL CELL URINE RARE /lpf (RARE/1+); WBC URINE 0-2 /hpf (0-2); YEAST URINE NONE SEEN
[2025-03-18] MEDS ORDERED: THIAMINE HCL 100MG TABLET PO SCH (09:00)
[2025-03-18] MEDS ORDERED: OLANZAPINE 10MG TABLET PO SCH (09:00)
[2025-03-18] MEDS ORDERED: FOLIC ACID 1MG TABLET PO SCH (09:00)
[2025-03-18] MEDS ORDERED: QUETIAPINE FUMARATE 25MG TABLET PO SCH (09:00)
== END 2025-03-18 07:03 | disposition short-term general hospital (02) ==
LOC: ER 22:06 → CMPBEDREQ 03-18 08:01
DX: S00.83XA Contusion of other part of head, initial encounter (principal); F10.229 Alcohol dependence with intoxication, unspecified; F20.9 Schizophrenia, unspecified; F32.A Depression, unspecified; Z79.899 Other long term (current) drug therapy; Z79.1 Long term (current) use of non-steroidal anti-inflammatories (NSAID); Z59.00 Homelessness unspecified; Z88.0 Allergy status to penicillin; Y09 Assault by unspecified means; Y93.89 Activity, other specified; Y92.89 Other specified places as the place of occurrence of the external cause; Y99.8 Other external cause status; Y90.8 Blood alcohol level of 240 mg/100 ml or more
CPT/HCPCS: 80320; 36415; 70450; 90715; 90471; 99285; 80305; 81003; Z7610 ×2; J3490 ×2; J3411; J7030; G0480

== ENCOUNTER 2025-03-20 14:26 | Emergency (ER) | payer OTHER ==
[~2025-03-20] VITALS: Ht 175.3 cm; Wt 80.0 kg
[2025-03-20 14:32] VITALS: O2SAT 99
[2025-03-20] MEDS ORDERED: ONDANSETRON 4MG ODT PO STA (14:50)
[2025-03-20] MEDS: ONDANSETRON 4MG ODT PO SCH (16:51)
[2025-03-20 19:04] VITALS: BP 110/63; PULSE 94; RESP 20; TEMP 36.7; O2SAT 99
== END 2025-03-20 19:00 | disposition home or self-care (01) ==
LOC: ER 14:26
DX: F10.129 Alcohol abuse with intoxication, unspecified (principal); Z79.1 Long term (current) use of non-steroidal anti-inflammatories (NSAID); Z79.899 Other long term (current) drug therapy; Z88.0 Allergy status to penicillin; Y90.9 Presence of alcohol in blood, level not specified
CPT/HCPCS: 99283; Q0162

== ENCOUNTER 2025-03-24 22:01 | Emergency (ER) | payer OTHER ==
[~2025-03-24] VITALS: Ht 175.3 cm; Wt 72.0 kg
[2025-03-24 22:06] VITALS: O2SAT 100
[2025-03-25] MEDS: SODIUM CHLORIDE 0.9% 1,000 ML IV ONE
[2025-03-25 05:53] LABS: BASOPHILS % 0.5 % (0.0-2.0); EOSINOPHILS % 3.3 % (0.0-5.0); HEMATOCRIT. 39.1 % (42.0-52.0); HEMOGLOBIN. 12.6 g/dL (14.0-18.0); LYMPHOCYTES % 25.8 % (20.0-50.0); MEAN PLATELET VOLUME 8.5 fl (7.4-10.4); MONOCYTES % 11.2 % (2.0-8.0); NEUTROPHILS % 59.2 % (40.0-76.0); PLATELET 155 x1000/uL (130-400); RED BLOOD CELL COUNT 4.05 mill/uL (4.7-6.1); RED CELL DISTRIBUTION WIDTH 13.7 % (11.6-14.6)
[2025-03-25 05:57] VITALS: TEMP 36.9
[2025-03-25 06:07] LABS: CREATININE 0.7 mg/dL (0.6-1.3); UREA NITROGEN BLOOD < 5 mg/dL (9-23)
[2025-03-25 07:55] LABS: *AMPHETAMINES SCREEN URINE NEGATIVE (NEGATIVE); *BARBITURATES SCREEN URINE NEGATIVE (NEGATIVE); *BENZODIAZEPINES SCREEN URINE PRESUMPTIVE POSITIVE (NEGATIVE); *COCAINE SCREEN URINE NEGATIVE (NEGATIVE); CANNABINOID URINE SCREEN NEGATIVE (NEGATIVE); ECSTASY MDMA SCREEN URINE NEGATIVE (NEGATIVE); METHADONE URINE SCREEN NEGATIVE (NEGATIVE); OPIATES URINE SCREEN NEGATIVE (NEGATIVE); PHENCYCLIDINE URINE SCREEN NEGATIVE (NEGATIVE)
[2025-03-25 08:00] VITALS: BP 130/90; PULSE 82; RESP 18; O2SAT 97
== END 2025-03-25 08:22 | disposition short-term general hospital (02) ==
LOC: ER 22:01 → EDBEDREQ 03-25 04:54 → EDBEDREQTM 03-25 04:54 → ER 03-25 08:22 → CMPBEDREQ 03-26 16:52
DX: F10.229 Alcohol dependence with intoxication, unspecified (principal); G92.9 Unspecified toxic encephalopathy; Z59.00 Homelessness unspecified; Z79.1 Long term (current) use of non-steroidal anti-inflammatories (NSAID); Z88.0 Allergy status to penicillin; Z79.899 Other long term (current) drug therapy; Y90.8 Blood alcohol level of 240 mg/100 ml or more
CPT/HCPCS: 80305; 80048; 80320; 85025; 36415; 99285; 96360; J7030; G0480

== ENCOUNTER 2025-04-21 16:21 | Emergency (ER) | payer OTHER ==
[~2025-04-21] VITALS: Ht 182.9 cm; Wt 88.0 kg
[2025-04-21 16:34] VITALS: O2SAT 99
[2025-04-21] MEDS ORDERED: CEPH500C2 MT (18:31)
[2025-04-21] MEDS ORDERED: IBUP-1455 MT (18:31)
[2025-04-21] MEDS ORDERED: QUET25TA PO (18:31)
[2025-04-21] MEDS: HYDROCODONE/ACETAMINOPHEN 5/325MG TABLET PO ONE (18:36)
[2025-04-21] MEDS: IBUPROFEN 600MG TABLET PO ONE (19:05)
[2025-04-21 19:17] VITALS: BP 126/81; PULSE 88; RESP 18; TEMP 36.7; O2SAT 98
== END 2025-04-21 19:22 | disposition home or self-care (01) ==
LOC: ER 16:21
DX: M79.602 Pain in left arm (principal); F20.9 Schizophrenia, unspecified; Z79.899 Other long term (current) drug therapy; Z88.0 Allergy status to penicillin
CPT/HCPCS: 73090; 99283; A4606

== ENCOUNTER 2025-04-21 22:07 | Emergency (ER) | payer OTHER ==
[~2025-04-21] VITALS: Ht 172.7 cm; Wt 80.0 kg
[~2025-04-21 22:07] MED LIST changes: +CEPH500C2 MT; +IBUP-1455 MT
[2025-04-21 22:13] VITALS: O2SAT 99
[2025-04-21] MEDS: ONDANSETRON HCL 4MG/2ML INJ IM ONE (22:41)
[2025-04-22 01:50] VITALS: BP 125/89; PULSE 75; RESP 18; TEMP 36.7; O2SAT 99
== END 2025-04-22 01:55 | disposition home or self-care (01) ==
LOC: ER 22:07
DX: F10.229 Alcohol dependence with intoxication, unspecified (principal); F20.9 Schizophrenia, unspecified; Z79.899 Other long term (current) drug therapy; Z88.0 Allergy status to penicillin; Y90.9 Presence of alcohol in blood, level not specified
CPT/HCPCS: 99283; 96372; J2405

== ENCOUNTER 2025-04-22 08:23 | Emergency (ER) | payer OTHER ==
[~2025-04-22] VITALS: Ht 182.9 cm; Wt 73.0 kg
[2025-04-22 08:25] VITALS: O2SAT 97
[2025-04-22 10:06] LABS: BASOPHILS % 0.3 % (0.0-2.0); EOSINOPHILS % 0.8 % (0.0-5.0); HEMATOCRIT. 39.9 % (42.0-52.0); HEMOGLOBIN. 12.9 g/dL (14.0-18.0); LYMPHOCYTES % 11.9 % (20.0-50.0); MEAN PLATELET VOLUME 9.3 fl (7.4-10.4); MONOCYTES % 7.5 % (2.0-8.0); NEUTROPHILS % 79.5 % (40.0-76.0); PLATELET 147 x1000/uL (130-400); RED BLOOD CELL COUNT 4.15 mill/uL (4.7-6.1); RED CELL DISTRIBUTION WIDTH 13.4 % (11.6-14.6)
[2025-04-22] MEDS: SODIUM CHLORIDE 0.9% 1,000 ML IV ONE (10:09)
[2025-04-22] MEDS: LORAZEPAM 2MG/ML UD SYRINGE IV NR (10:11)
[2025-04-22 10:19] LABS: CREATININE 0.7 mg/dL (0.6-1.3)
[2025-04-22 10:20] LABS: UREA NITROGEN BLOOD < 5 mg/dL (9-23)
[2025-04-22 10:21] LABS: ASPARTATE AMINOTRANSFERASE 45 IU/L (<34)
[2025-04-22 10:22] LABS: BILIRUBIN DIRECT 0.2 mg/dL (<=3.0); BILIRUBIN TOTAL 0.8 mg/dL (0.1-1.0); PROTEIN TOTAL 8.5 g/dL (6.0-8.3)
[2025-04-22 13:00] VITALS: BP 157/97; PULSE 96; RESP 17; TEMP 36.7; O2SAT 98
== END 2025-04-22 12:20 | disposition short-term general hospital (02) ==
LOC: ER 08:23 → CANBEDREQ 11:08 → ER 12:20
DX: F10.239 Alcohol dependence with withdrawal, unspecified (principal); F17.200 Nicotine dependence, unspecified, uncomplicated; F20.9 Schizophrenia, unspecified; F31.9 Bipolar disorder, unspecified; Z79.899 Other long term (current) drug therapy; Z88.0 Allergy status to penicillin; Y90.9 Presence of alcohol in blood, level not specified
CPT/HCPCS: 80076; 80048; 80320; 85025; 36415; 96361; 96374; 99285; J2060; J7030; Z7610 ×3; G0480

== ENCOUNTER 2025-05-29 21:06 | Emergency (ER) | payer OTHER ==
[~2025-05-29] VITALS: Ht 177.8 cm; Wt 82.0 kg
[2025-05-29 21:11] VITALS: O2SAT 98
[2025-05-29 22:25] VITALS: BP 153/102; PULSE 67; RESP 14; O2SAT 96
[2025-05-29] MEDS: ACETAMINOPHEN 325MG TABLET PO ONE (22:27)
[2025-05-30] MEDS ORDERED: ACET-2708 PO (01:34)
== END 2025-05-29 22:50 | disposition home or self-care (01) ==
LOC: ER 21:13
DX: F10.229 Alcohol dependence with intoxication, unspecified (principal); G40.909 Epilepsy, unspecified, not intractable, without status epilepticus; F31.9 Bipolar disorder, unspecified; I10 Essential (primary) hypertension; F20.9 Schizophrenia, unspecified; Z79.899 Other long term (current) drug therapy; Z79.1 Long term (current) use of non-steroidal anti-inflammatories (NSAID); Z88.0 Allergy status to penicillin; Y90.9 Presence of alcohol in blood, level not specified
CPT/HCPCS: 99283

== ENCOUNTER 2025-05-29 23:10 | Emergency (ER) | payer MEDICAID, OTHER ==
[~2025-05-29] VITALS: Ht 185.4 cm; Wt 71.1 kg
[2025-05-29 23:16] VITALS: O2SAT 96
[2025-05-29 23:52] VITALS: BP 143/89; PULSE 98; RESP 18; TEMP 36.5; O2SAT 99
[2025-05-30 00:52] VITALS: TEMP 97.7
[2025-05-30] MEDS: ACETAMINOPHEN 325MG TABLET PO ONE (00:52)
[2025-05-30 00:54] LABS: BASOPHILS % 1.1 % (0.0-2.0); EOSINOPHILS % 4.1 % (0.0-5.0); HEMATOCRIT. 48.0 % (42.0-52.0); HEMOGLOBIN. 15.5 g/dL (14.0-18.0); LYMPHOCYTES % 28.9 % (20.0-50.0); MEAN PLATELET VOLUME 9.2 fl (7.4-10.4); MONOCYTES % 6.1 % (2.0-8.0); NEUTROPHILS % 59.8 % (40.0-76.0); PLATELET 269 x1000/uL (130-400); RED BLOOD CELL COUNT 5.20 mill/uL (4.7-6.1); RED CELL DISTRIBUTION WIDTH 12.8 % (11.6-14.6)
[2025-05-30 01:04] LABS: CREATININE 0.9 mg/dL (0.6-1.3); UREA NITROGEN BLOOD < 5 mg/dL (9-23)
[2025-05-30] MEDS ORDERED: ACET-2708 PO (01:34)
[2025-05-30 01:35] LABS: ETHANOL BLOOD 382 mg/dL (<10)
== END 2025-05-30 01:59 | disposition home or self-care (01) ==
LOC: ER 23:10
DX: S00.93XA Contusion of unspecified part of head, initial encounter (principal); S40.819A Abrasion of unspecified upper arm, initial encounter; F10.129 Alcohol abuse with intoxication, unspecified; F31.9 Bipolar disorder, unspecified; F20.9 Schizophrenia, unspecified; G40.909 Epilepsy, unspecified, not intractable, without status epilepticus; I10 Essential (primary) hypertension; F41.9 Anxiety disorder, unspecified; Z88.0 Allergy status to penicillin; X58.XXXA Exposure to other specified factors, initial encounter; Y93.89 Activity, other specified; Y92.89 Other specified places as the place of occurrence of the external cause; Y99.8 Other external cause status; Y90.9 Presence of alcohol in blood, level not specified
CPT/HCPCS: 36415; 80048; 80320; 85025; 99284; G0480